=== PATIENT | female | born 1940 | race Caucasian/White ===

== ENCOUNTER → 2022-01-08 | Outpatient (CLI) | payer MEDICARE, BC ==
[~2022-01-08] MED LIST: AMOX1TAB11 PO; FURO20TA3 PO
--- NOTE | 2022-01-08 14:57 | RAD ---
EXAMINATION: CT Chest Without IV contrast. INDICATION:81 years, Female, lung nodule. COMPARISON: None. TECHNIQUE: Spiral CT was obtained from the jugular notch through the posterior costophrenic recess. S agittal and coronal reformats were obtained. Exposure: One or more of the following individualized dose reduction techniques were utilized for thi s examination: 1. Automated exposure control 2. Adjustment of the mA and/or kV according to patient size 3. Use of iterative reconstruction technique. FINDINGS: LUNGS/PLEURA: Central airways are patent. Mild pulmonary emphysema. Multifocal mosaic attenuations in both lungs, likely reflecting air trapping. Dependent subsegmental atelectasis and/or scarring in bi basilar lungs, right middle lobe and lingula. Tree-in-bud nodularities in the posterior superior segm ent left lower lobe. Biapical pleural thickening. No focal consolidation, pleural effusion or pneumot horax. Irregular 6 mm nodular opacity in the right upper lobe (series 8 image 67). Scattered calcifi ed granulomas bilaterally. MEDIASTINUM: No pathologic mediastinal or hilar adenopathy. Multiple calcified mediastinal and left h ilar lymph nodes. The thoracic aorta and pulmonary arteries are normal in caliber. The heart is nciki l in size. No pericardial effusion. Moderate calcified coronary atherosclerosis. The visualized thyro id and the esophagus are unremarkable. AXILLA/SOFT TISSUE: No supraclavicular or axillary adenopathy. Regional soft tissues are within nicki l limits. UPPER ABDOMEN: Cholecystectomy. Subcentimeter hypodensity in the left hepatic lobe, too small to daniella acterize. Calcified granulomas in the spleen. BONES: No evidence of acute fractures or aggressive osseous lesions. Multilevel degenerative changes in the spine. IMPRESSION: 1. Irregular 6 mm nodular opacity in the right upper lobe. Fleischner Society guidelines for manageme nt of incidental pulmonary nodule (Radiology 2017): Single Soild nodule6-8 mm: LOW-RISK and HIGH-RISK patient: CT at 6-12 months, then consider CT at 18-24 months. 2.Tree-in-bud nodularities in the posterior superior segment of the left lower lobe, likely infectiou s or inflammatory bronchiolitis. 3. Mild pulmonary emphysema with multifocal areas of air trapping. 4. Moderate calcified coronary atherosclerosis. Electronically signed by: Sun Urbina MD (01/08/2022 2:55 PM) [facility]
== END ==
LOC: CT 10:10
PROVIDERS: ATTEND Internal Medicine Critical Care Medicine
DX: R91.8 Other nonspecific abnormal finding of lung field (principal); J43.9 Emphysema, unspecified; I25.10 Atherosclerotic heart disease of native coronary artery without angina pectoris; J92.9 Pleural plaque without asbestos; I89.8 Other specified noninfective disorders of lymphatic vessels and lymph nodes; D73.89 Other diseases of spleen; M47.819 Spondylosis without myelopathy or radiculopathy, site unspecified
CPT/HCPCS: 71250

== ENCOUNTER 2022-01-23 13:07 | Emergency (ER) | payer MEDICARE, BC ==
[~2022-01-23] VITALS: Ht 170.2 cm; Wt 58.3 kg
--- NOTE | 2022-01-23 14:17 | ED.ADGEN ---
Past Medical History Past Surgical History: Cholecystectomy Smoking Status: Never Smoker Alcohol Use: None General Adult EDM: Chief Complaint: MULTIPLE COMPLAINTS HPI: HPI: Patient is a 81 year old female coming in for 2 months of "not feeling right" patient has multiple complaints including muscle pain and weakness, lower extremity edema, fatigue. Patient states she is having pain all over and is been taking naproxen. Denies any medical history. Denies any history of prescribed medications. Patient has seen her primary care doctor already and has follow appointments with pulmonology and cardiology. Review of Systems: Review of Systems: All other systems within normal limits except for as noted in the HPI Allergies: Allergies: Allergies Coded Allergies Type Severity Reaction Last Updated Verified iodine Allergy Intermediate 01/23/22 Yes Physical Exam: PE: Constitutional: Well developed, well nourished, no acute distress, non-toxic appearance. [] HENT: Normocephalic, atraumatic, bilateral external ears normal, nose normal. [] Eyes: PERRLA, conjunctiva normal, no discharge. [] Neck: No rigidity, supple, no stridor. [] Cardiovascular: Regular rate and rhythm, brisk cap refill [] Lungs & Thorax: Non labored symmetric respirations, no tachypnea or respiratory distress [] Abdomen: Soft, nondistended. Skin: Warm, dry, no erythema, no rash. [] Back: Unremarkable Extremities: No deformities, range of motion grossly intact, bilateral 3+ pitting lower extremity edema [] Neurologic: Alert and oriented X 3, no focal deficits noted. [] Psychologic: Affect normal, judgement normal, mood normal. [] Current Patient Data: Labs: Laboratory Tests Test 01/23/22 13:40 01/23/22 15:30 White Blood Count 16.4 x10^3/uL (4.0-11.0) H Red Blood Count 4.78 x10^6/uL (3.50-5.40) Hemoglobin 13.9 g/dL (12.0-15.5) Hematocrit 42.1 % (36.0-47.0) Mean Corpuscular Volume 88 fL (79-100) Mean Corpuscular Hemoglobin 29 pg (25-35) Mean Corpuscular Hemoglobin Concent 33 g/dL (31-37) Red Cell Distribution Width 14.0 % (11.5-14.5) Platelet Count 482 x10^3/uL (140-400) H Neutrophils (%) (Auto) 84 % (31-73) H Lymphocytes (%) (Auto) 6 % (24-48) L Monocytes (%) (Auto) 9 % (0-9) Eosinophils (%) (Auto) 1 % (0-3) Basophils (%) (Auto) 0 % (0-3) Neutrophils # (Auto) 13.8 x10^3/uL (1.8-7.7) H Lymphocytes # (Auto) 1.0 x10^3/uL (1.0-4.8) Monocytes # (Auto) 1.4 x10^3/uL (0.0-1.1) H Eosinophils # (Auto) 0.2 x10^3/uL (0.0-0.7) Basophils # (Auto) 0.1 x10^3/uL (0.0-0.2) Segmented Neutrophils % 75 % (35-66) H Band Neutrophils % 4 % (0-9) Lymphocytes % 8 % (24-48) L Monocytes % 11 % (0-10) H Eosinophils % 1 % (0-5) Myelocytes % 1 % (0-0) H Platelet Estimate Increased (ADEQUATE) Sodium Level 134 mmol/L (136-145) L Potassium Level 3.5 mmol/L (3.5-5.1) Chloride Level 97 mmol/L (98-107) L Carbon Dioxide Level 29 mmol/L (21-32) Anion Gap 8 (6-14) Blood Urea Nitrogen 19 mg/dL (7-20) Creatinine 0.9 mg/dL (0.6-1.0) Estimated GFR (Cockcroft-Gault) 60.4 BUN/Creatinine Ratio 21 (6-20) H Glucose Level 94 mg/dL (70-99) Calcium Level 8.6 mg/dL (8.5-10.1) Phosphorus Level 3.9 mg/dL (2.6-4.7) Magnesium Level 1.8 mg/dL (1.8-2.4) Total Bilirubin 0.6 mg/dL (0.2-1.0) Aspartate Amino Transferase (AST) 111 U/L (15-37) H Alanine Aminotransferase (ALT) 72 U/L (14-59) H Alkaline Phosphatase 104 U/L (46-116) Creatine Kinase 1058 U/L (26-192) H Myoglobin 1147 ng/mL (9-82) H Troponin I High Sensitivity 42 ng/L (4-50) EX-Thw-S-Type Natriuretic Peptide 1518 pg/mL (0-449) H Total Protein 6.5 g/dL (6.4-8.2) Albumin 2.0 g/dL (3.4-5.0) L Albumin/Globulin Ratio 0.4 (1.0-1.7) L Thyroid Stimulating Hormone (TSH) 6.562 uIU/mL (0.358-3.74) H Urine Collection Type Unknown Urine Color (Auto) Light yellow Urine Turbidity Clear Urine pH (Auto) 5.0 (<5.0-8.0) Urine Specific [place] 1.010 (1.000-1.030) Urine Protein (Auto) Negative mg/dL (Negative) Urine Glucose (Auto)(UA) Negative mg/dL (Negative) Urine Ketones (Auto) Negative mg/dL (Negative) Urine Blood (Auto) Small (Negative) Urine Nitrite Negative (Negative) Urine Bilirubin (Auto) Negative (Negative) Urine Urobilinogen (Auto) Normal mg/dL (Normal) Urine Leukocyte Esterase (Auto) Negative (Negative) Urine RBC 0 /HPF (0-2) Urine WBC 5-10 /HPF (0-4) Urine Squamous Epithelial Cells Few /LPF Urine Transitional Epithelial Cells Occ /LPF Urine Renal Epithelial Cells Occ /LPF Urine Bacteria 0 /HPF (0-FEW) Urine Hyaline Casts Many /HPF Urine Mucus Marked /LPF Laboratory Tests 01/23/22 13:40 Laboratory Tests 01/23/22 13:40 Vital Signs: Vital Signs Date Time Temp Pulse Resp B/P (MAP) Pulse Ox O2 Delivery O2 Flow Rate FiO2 01/23/22 16:06 73 18 123/69 (87) 98 01/23/22 13:11 97.3 Room Air 97.3 EKG: EKG: Sinus rhythm, heart rate 83 bpm, normal axis. No STEMI [] Heart Score: C/O Chest Pain: No HEART Score for Chest Pain: HEART Score for Chest Pain Response (Comments) Value History Slighlty/Non-Suspicious 0 ECG Normal 0 Age > 65 2 Risk Factors 1 or 2 Risk Factors 1 Troponin < Normal Limit 0 Total 3 Risk Factors: Risk Factors: DM, Current or recent (<one month) smoker, HTN, HLP, family history of CAD, obesity. Risk Scores: Score 0 - 3: 2.5% MACE over next 6 weeks - Discharge Home Score 4 - 6: 20.3% MACE over next 6 weeks - Admit for Clinical Observation Score 7 - 10: 72.7% MACE over next 6 weeks - Early Invasive Strategies Radiology/Procedures: Radiology/Procedures: [place] [address] IMAGING REPORT Signed PATIENT: MUNA MCCAIN ACCOUNT: [id number] : 1940 LOCATION: ER AGE: 81 SEX: F EXAM STATUS: REG ER ORD. PHYSICIAN: NABILA FAIRCHILD MD REASON: chf PROCEDURE: CHEST PA & LATERAL EXAMINATION: XR CHEST 2V CLINICAL HISTORY: CHF. EXAM DATE/TIME: 01/23/2022 3:15 PM COMPARISON: CT chest 01/08/2022 FINDINGS: Lines, Tubes, and Devices: None. Cardiomediastinal Silhouette: Borderline cardiomegaly. Aortic atherosclerotic calcification. Lungs and Pleura: Mild bibasilar subsegmental atelectasis and/or scarring with blunting of the posterior costophrenic sulci, similar to prior study. No evidence of focal airspace consolidation or definite pleural effusion. Bones and Soft Tissues: Degenerative changes in the thoracic spine. IMPRESSION: No evidence of acute cardiopulmonary abnormality. Electronically signed by: Gerson Flowers DO (01/23/2022 3:30 PM) [facility] DICTATED and SIGNED BY: GERSON FLOWERS DO DATE: 01/23/22 1528 [] [address] [address] IMAGING REPORT Signed PATIENT: MUNA MCCAIN ACCOUNT: [id number] : 1940 LOCATION: ER AGE: 81 SEX: F EXAM STATUS: REG ER ORD. PHYSICIAN: NABILA FAIRCHILD MD REASON: swelling PROCEDURE: VENOUS LOWER EXT BILATERAL EXAMINATION: US BILATERAL LOWEREXTREMITY VENOUS DOPPLER (LOWER EXTREMITY VENOUS ULTRASOUND) CLINICAL HISTORY: Lower extremity edema. TECHNIQUE: Sonographic grayscale images obtained of the bilateral lower extremity deep venous systems with color flow Doppler, compression, and augmentation techniques as indicated. Images obtained and stored in a permanent archive. COMPARISON: None FINDINGS: RIGHT: No evidence of absent flow or incompressibility within the common femoral vein, femoral vein, or popliteal vein. Visualized calf veins appear patent on limited evaluation. LEFT: No evidence of absent flow or incompressibility within the common femoral vein, femoral vein, or popliteal vein. Visualized calf veins appear patent on limited evaluation. IMPRESSION: No evidence of bilateral lower extremity DVT. Electronically signed by: Gerson Flowers DO (01/23/2022 3:09 PM) [facility] DICTATED and SIGNED BY: GERSON FLOWERS DO DATE: 01/23/22 1506 Course & Med Decision Making: Course & Med Decision Making Pertinent Labs and Imaging studies reviewed. (See chart for details) Patient has borderline elevation in BNP for age, concerning for developing heart failure. Patient also has a white count. On review of patient's CT that was done 3 weeks ago she had a tree-in-bud appearance on the left lung. We will try a antibiotics to see if that is the cause of her white count. Discussed follow-up with cardiology, has an appointment in 5 days, to review whether the diuretics are working. Do follow-up with her primary care for further review of possible inflammatory markers and systemic arthritis causing her whole body pain [] Dragon Disclaimer: Cayla Disclaimer: This electronic medical record was generated, in whole or in part, using a voice recognition dictation system. Departure Departure Impression: Primary Impression: Lower extremity edema Disposition: HOME / SELF CARE / HOMELESS Condition: STABLE Referrals: CONNIE WILSON MD (PCP) Patient Instructions: Peripheral Edema Additional Instructions: Take antibiotics as prescribed for possible pneumonia. Take the furosemide in the morning and follow-up with cardiology to evaluate dosing and effectiveness. Follow-up cardiology discussed possible echocardiogram to assess for heart failure. Scripts Furosemide (FUROSEMIDE) 20 Mg Tablet 1 TAB PO DAILY for diuretic for 7 Days, #7 TAB 1 Refill Prov: NABILA FAIRCHILD MD 01/23/22 Amoxicillin/Potassium Clav (AMOX TR-K CLV 875-125 MG TAB) 1 Each Tablet 1 TAB PO BID for antibiotic for 5 Days, #10 TAB Prov: NABILA FAIRCHILD MD 01/23/22 NABILA FAIRCHILD MD Jan 23, 2022 14:17
[2022-01-23 14:24] LABS: BASO # 0.1 x10^3/uL (0.0-0.2); BASO % 0 % (0-3); EOS # 0.2 x10^3/uL (0.0-0.7); EOS % 1 % (0-3); HEMATOCRIT 42.1 % (36.0-47.0); HEMOGLOBIN 13.9 g/dL (12.0-15.5); LYMPH % 6 % (24-48); MEAN CORPUSCULAR HEMOGLOBIN 29 pg (25-35); MEAN CORPUSCULAR HGB CONC 33 g/dL (31-37); MEAN CORPUSCULAR VOLUME 88 fL (79-100); MONO # 1.4 x10^3/uL (0.0-1.1); MONO % 9 % (0-9); NEUT # 13.8 x10^3/uL (1.8-7.7); NEUT % 84 % (31-73); PLATELET COUNT 482 x10^3/uL (140-400); RED BLOOD COUNT 4.78 x10^6/uL (3.50-5.40); WHITE BLOOD COUNT 16.4 x10^3/uL (4.0-11.0)
[2022-01-23 14:43] LABS: CALCIUM 8.6 mg/dL (8.5-10.1); CREATININE 0.9 mg/dL (0.6-1.0); GFR 60.4; POTASSIUM 3.5 mmol/L (3.5-5.1)
[2022-01-23 15:09] LABS: ALBUMIN/GLOBULIN RATIO 0.4 (1.0-1.7); MAGNESIUM 1.8 mg/dL (1.8-2.4); PHOSPHORUS 3.9 mg/dL (2.6-4.7); TOTAL BILIRUBIN 0.6 mg/dL (0.2-1.0); TOTAL PROTEIN 6.5 g/dL (6.4-8.2)
--- NOTE | 2022-01-23 15:11 | RAD ---
EXAMINATION: US BILATERAL LOWEREXTREMITY VENOUS DOPPLER (LOWER EXTREMITY VENOUS ULTRASOUND) CLINICAL HISTORY: Lower extremity edema. TECHNIQUE: Sonographic grayscale images obtained of the bilateral lower extremity deep venous systems with color flow Doppler, compression, and augmentation techniques as indicated. Images obtained and stored in a permanent archive. COMPARISON: None FINDINGS: RIGHT: No evidence of absent flow or incompressibility within the common femoral vein, femoral vein, or popl iteal vein. Visualized calf veins appear patent on limited evaluation. LEFT: No evidence of absent flow or incompressibility within the common femoral vein, femoral vein, or popl iteal vein. Visualized calf veins appear patent on limited evaluation. IMPRESSION: No evidence of bilateral lower extremity DVT. Electronically signed by: Gerson Peña DO (01/23/2022 3:09 PM) [facility]
--- NOTE | 2022-01-23 15:33 | RAD ---
EXAMINATION: XR CHEST 2V CLINICAL HISTORY: CHF. EXAM DATE/TIME: 01/23/2022 3:15 PM COMPARISON: CT chest 01/08/2022 FINDINGS: Lines, Tubes, and Devices: None. Cardiomediastinal Silhouette: Borderline cardiomegaly. Aortic atherosclerotic calcification. Lungs and Pleura: Mild bibasilar subsegmental atelectasis and/or scarring with blunting of the dog or animal sitter ior costophrenic sulci, similar to prior study. No evidence of focal airspace consolidation or defini te pleural effusion. Bones and Soft Tissues: Degenerative changes in the thoracic spine. IMPRESSION: No evidence of acute cardiopulmonary abnormality. Electronically signed by: Gerson Peña DO (01/23/2022 3:30 PM) ERINN
[2022-01-23 15:55] LABS: HYALINE CASTS, URINE MANY /HPF
[2022-01-23 15:56] LABS: BACTERIA,URINE 0 /HPF (0-FEW); RBC,URINE 0 /HPF (0-2)
[2022-01-23 16:10] LABS: % BANDS 4 % (0-9); % EOS 1 % (0-5); % LYMPHS 8 % (24-48); % MONOS 11 % (0-10); % MYELOS 1 % (0-0); % SEGS 75 % (35-66)
[2022-01-23 16:11] LABS: PLT ESTIMATE INCREASED (ADEQUATE)
[2022-01-23] MEDS ORDERED: FURO20TA3 PO (16:35)
[2022-01-23] MEDS ORDERED: AMOX1TAB11 PO (16:35)
[2022-01-23 16:41] VITALS: BP 123/69
--- NOTE | 2022-01-24 00:29 | EKG ---
[facility] [address] [place] [address] Test Date: 2022-01-23 Test Time: 14:27:34 Pat Name: MUNA MCCAIN Department: Room: Gender: F [employer]: : 1940 Requested By: NABILA FAIRCHILD Order Number: [id number] Reading MD: Jay You Measurements Intervals [place] Rate: 83 P: 47 AR: 124 QRS: 34 QRSD: 78 T: 72 QT: 368 QTc: 438 Interpretive Statements SINUS RHYTHM ATRIAL PREMATURE COMPLEX(ES) Electronically Signed On 01-27-2022 17:34:33 CDT by Jay You
== END 2022-01-23 16:48 | disposition home or self-care (01) ==
LOC: ER 13:07
DX: M79.604 Pain in right leg (principal); M79.605 Pain in left leg; R60.0 Localized edema; Z90.49 Acquired absence of other specified parts of digestive tract; Z88.8 Allergy status to other drugs, medicaments and biological substances
CPT/HCPCS: 36415; 71046; 80053; 81001; 82550; 83735; 83874; 83880; 84100; 84443; 84484; 85007; 85025; 87086; 93005; 93970; 99285-25

== ENCOUNTER 2022-02-05 17:39 | Inpatient (IN) | payer MEDICARE, BC ==
[~2022-02-05] VITALS: Ht 170.2 cm; Wt 59.0 kg
[2022-02-05] MEDS ORDERED: IV NORMAL SALINE 1000ML BAG 1,000 ML IV ONE ×2 (18:45→19:30)
--- NOTE | 2022-02-05 18:53 | PHYS DOC ---
Past Medical History Past Medical History: COPD (DAMIR LYNN APRN) Past Surgical History: Cholecystectomy (DAMIR LYNN APRN) Smoking Status: Never Smoker Alcohol Use: None (DAMIR LYNN APRN) General Adult EDM: Chief Complaint: WEAKNESS/GENERALIZED HPI: HPI: Patient is a 81-year-old female who presents today with generalized weakness and pain all over. We received a call from the patient's primary care physician Dr. Tangela Pena at [facility] and she sent the patient in because the patient's had 8 weeks worth of generalized weakness, weight loss, increased white count, and failure to thrive. The who is at the bedside states that they over the last 8 weeks have seen their primary care physician twice, they have been to a insurance claims representative Dr. Belle, they have been to a registered clinical dietitian Dr. Fried, and no one can figure out why the patient is having weight loss and generalized weakness. Patient has also had bilateral leg swelling for the last 8 weeks as well, she denies chest pain, shortness of breath, or fever and chills. Has been states that they had labs drawn here at [facility] that showed a white count of 16,000, the had labs repeated at Dr. Pena's office which showed a white count of 20,000 they are unsure of why the patient's white count is elevated. Patient also states that she had a son that from a neurological condition that is in some terms hereditary, he at the age of 48, patient has not had any evaluation by a neurologist at this time. is very insistent that patient be admitted to the hospital for further evaluation and management. (DAMIR LYNN APRN) Review of Systems: Review of Systems: Constitutional: Denies fever or chills. [] Eyes: Denies change in visual acuity. [] HENT: Denies nasal congestion or sore throat. [] Respiratory: Denies cough or shortness of breath. [] Cardiovascular: Denies chest pain or edema. [] GI: Weight loss, nausea denies abdominal pain, vomiting, bloody stools or diarrhea. [] : Denies dysuria. [] Musculoskeletal: Generalized weakness and pain all over Integument: Denies rash. [] Neurologic: Denies headache, focal weakness or sensory changes. [] Endocrine: Denies polyuria or polydipsia. [] Lymphatic: Denies swollen glands. [] Psychiatric: Denies depression or anxiety. [] (DAMIR LYNN APRN) Heart Score: C/O Chest Pain: No Risk Factors: Risk Factors: DM, Current or recent (<one month) smoker, HTN, HLP, family history of CAD, obesity. Risk Scores: Score 0 - 3: 2.5% MACE over next 6 weeks - Discharge Home Score 4 - 6: 20.3% MACE over next 6 weeks - Admit for Clinical Observation Score 7 - 10: 72.7% MACE over next 6 weeks - Early Invasive Strategies (DAMIR LYNN APRN) Current Medications: Current Medications Medications (Trade) Dose Ordered Sig/Oren Start Time Stop Time Status Last Admin Dose Admin Sodium Chloride 1,000 ml @ 999 mls/hr 1X ONCE 02/05/22 18:45 02/05/22 19:45 UNV (DAMIR LYNN APRN) Allergies: Allergies: Allergies Coded Allergies Type Severity Reaction Last Updated Verified iodine Allergy Intermediate 01/23/22 Yes (DAMIR LYNN APRN) Physical Exam: PE: Constitutional: Well developed, well nourished, no acute distress, non-toxic appearance. [] HENT: Normocephalic, atraumatic, bilateral external ears normal, oropharynx moist, no oral exudates, nose normal. [] Eyes: PERRLA, EOMI, conjunctiva normal, no discharge. [] Neck: Normal range of motion, no tenderness, supple, no stridor. [] Cardiovascular:Heart rate regular rhythm, no murmur [] Lungs & Thorax: Bilateral breath sounds clear to auscultation [] Abdomen: Bowel sounds normal, soft, no tenderness, no masses, no pulsatile masses. [] Skin: Warm, dry, no erythema, no rash. [] Back: No tenderness, no CVA tenderness. [] Extremities: No tenderness, no cyanosis, no clubbing, ROM intact, no edema. [] Neurologic: Alert and oriented X 3, normal motor function, normal sensory function, no focal deficits noted. [] Psychologic: Affect normal, judgement normal, mood normal. [] (DAMIR LYNN APRN) Current Patient Data: Labs: Laboratory Tests Test 02/05/22 18:27 02/05/22 18:52 Urine Collection Type Unknown Urine Color (Auto) Yellow Urine Turbidity Hazy Urine pH (Auto) 5.5 Urine Specific [place] 1.021 Urine Protein (Auto) 50 mg/dL Urine Glucose (Auto)(UA) Negative mg/dL Urine Ketones (Auto) 20 mg/dL Urine Blood (Auto) Moderate Urine Nitrite Negative Urine Bilirubin (Auto) Negative Urine Urobilinogen (Auto) 4 mg/dL Urine Leukocyte Esterase (Auto) Large Urine RBC 3-5 /HPF Urine WBC 11-20 /HPF Urine Squamous Epithelial Cells Many /LPF Urine Transitional Epithelial Cells Few /LPF Urine Renal Epithelial Cells Few /LPF Urine Bacteria Few /HPF Urine Hyaline Casts Moderate /HPF Urine Granular Casts Few /HPF Urine Mucus Marked /LPF White Blood Count 18.4 x10^3/uL Red Blood Count 4.64 x10^6/uL Hemoglobin 13.2 g/dL Hematocrit 39.7 % Mean Corpuscular Volume 86 fL Mean Corpuscular Hemoglobin 29 pg Mean Corpuscular Hemoglobin Concent 33 g/dL Red Cell Distribution Width 15.3 % Platelet Count 320 x10^3/uL Neutrophils (%) (Auto) 87 % Lymphocytes (%) (Auto) 4 % Monocytes (%) (Auto) 8 % Eosinophils (%) (Auto) 0 % Basophils (%) (Auto) 0 % Neutrophils # (Auto) 16.0 x10^3/uL Lymphocytes # (Auto) 0.7 x10^3/uL Monocytes # (Auto) 1.6 x10^3/uL Eosinophils # (Auto) 0.1 x10^3/uL Basophils # (Auto) 0.1 x10^3/uL Segmented Neutrophils % 82 % Band Neutrophils % 3 % Lymphocytes % 7 % Monocytes % 6 % Myelocytes % 2 % Platelet Estimate Adequate Erythrocyte Sedimentation Rate 40 Sodium Level 139 mmol/L Potassium Level 3.5 mmol/L Chloride Level 97 mmol/L Carbon Dioxide Level 28 mmol/L Anion Gap 14 Blood Urea Nitrogen 33 mg/dL Creatinine 1.2 mg/dL Estimated GFR (Cockcroft-Gault) 43.3 BUN/Creatinine Ratio 28 Glucose Level 108 mg/dL Lactic Acid Level 3.6 mmol/L Calcium Level 8.6 mg/dL Total Bilirubin 1.8 mg/dL Aspartate Amino Transf (AST/SGOT) 44 U/L Alanine Aminotransferase (ALT/SGPT) 36 U/L Alkaline Phosphatase 106 U/L Troponin I High Sensitivity 21 ng/L C-Reactive Protein, Quantitative 249.4 mg/L VM-[id number]-Type Natriuretic Peptide 2212 pg/mL Total Protein 6.7 g/dL Albumin 1.9 g/dL Albumin/Globulin Ratio 0.4 Current Medications Medications (Trade) Dose Ordered Sig/Oren Route PRN Reason Start Time Stop Time Status Last Admin Dose Admin Sodium Chloride 1,000 ml @ 999 mls/hr 1X ONCE IV 02/05/22 18:45 02/05/22 19:45 DC 02/05/22 19:02 Ceftriaxone Sodium (Rocephin) 1 gm 1X ONCE IVP 02/05/22 20:00 02/05/22 20:01 DC 02/05/22 19:50 Sodium Chloride 1,000 ml @ 999 mls/hr 1X ONCE IV 02/05/22 19:30 02/05/22 20:30 02/05/22 19:49 Vital Signs: Vital Signs Date Time Temp Pulse Resp B/P (MAP) Pulse Ox O2 Delivery O2 Flow Rate FiO2 02/05/22 18:23 98.4 87 20 161/83 (109) 100 Room Air 98.4 Vital Signs Date Time Temp Pulse Resp B/P (MAP) Pulse Ox O2 Delivery O2 Flow Rate FiO2 02/05/22 18:23 98.4 87 20 161/83 (109) 100 Room Air 98.4 (DAMIR LYNN ENGINE TESTER) EKG: EKG: EKG done at [address] Lua at 1844 shows sinus rhythm with PACs at a rate of 91 with a LA interval of 110 ms with a QTC of 427 ms no STEMI [] (DAMIR LYNN ENGINE TESTER) Radiology/Procedures: Radiology/Procedures: []REASON: weight loss and weakness, fall PROCEDURE: CT CHEST ABDOMEN PELVIS WO Exam: CT of chest, abdomen and pelvis without contrast INDICATION: Weight loss, weakness TECHNIQUE: Sequential axial images through the chest, abdomen and pelvis obtained without IV contrast. Sagittal and coronal reformatted images were recon structed from the axial data and reviewed. Exposure: One or more of the following in the visualized dose reduction techniques were utilized for this examination: 1. Automated exposure control 2. Adjustment of the MA and/or KV according to patient size 3. Use of iterative of reconstructive technique Comparisons: Chest x-ray same day FINDINGS: Visualized portions of the thyroid are unremarkable. No enlarged mediastinal lymph nodes are identified. Heart size is normal. No pericardial effusion. Mild coronary artery calcification. Ectatic dilatation of ascending aorta measuring up to 4.1 cm in diameter. Pulmonary artery is not enlarged. Airways are patent. No consolidation or pneumothorax. Mild centrilobular emphysematous change noted the upper lungs. No suspicious lung nodules are identified. No pleural effusion or thickening. Evaluation of solid organs limited secondary to noncontrast technique. Liver, spleen, pancreas, and adrenals are unremarkable. Gallbladder is absent. No perinephric inflammation or hydronephrosis. No renal or ureteral calculi are identified. Bladder is partially distended and appears thin-walled. Uterus not enlarged. No abnormal adnexal mass. Moderate amount of stool is noted in the colon. Appendix is nonidentified. No free intra-abdominal air. Small amount of free fluid in the pelvis. No obstruction. Abdominal aorta has normal course and caliber. No enlarged intra-abdominal lymph nodes are identified. No suspicious osseous lesions or acute fractures. IMPRESSION: 1. Small amount of free fluid in the pelvis. This is nonspecific, may relate to underlying infectious or inflammatory process. 2. Ectatic dilatation of ascending aorta measuring up to 4.1 cm in diameter. Electronically signed by: Meme Meija MD (02/05/2022 7:36 PM) [facility] (DAMIR LYNN APRN) Course & Med Decision Making: Course & Med Decision Making Pertinent Labs and Imaging studies reviewed. (See chart for details) 1950 reviewed laboratory and radiological results with patient and and did inform him that she still has a urinary tract infection, and that her white count is still elevated I did tell him that we will admit to the hospitalist which is Dr. Burk for further evaluation and management of her urinary tract infection and elevated white count, they are agreeable with the plan of care and admission. [address] Burk about this patient and he is agreeable to admitting the patient to the hospital. (DAMIR LYNN APRN) Cayla Disclaimer: Dragrene Disclaimer: This electronic medical record was generated, in whole or in part, using a voice recognition dictation system. (DAMIR LYNN APRN) Date and Time of Reassessment Date: February 05, 2022 Time: 20:11 (DAMIR LYNN APRN) Fluid Challenge Is the fluid challenge complet: Yes IBW Target Volume Used: Yes BMI > 30: Yes Blood Culture TIme: 18:52 Time Antibiotics Given: 19:50 (DAMIR LYNN APRN) Vital Signs Vital Signs: Vital Signs Date Time Temp Pulse Resp B/P (MAP) Pulse Ox O2 Delivery O2 Flow Rate FiO2 02/05/22 18:23 98.4 87 20 161/83 (109) 100 Room Air 98.4 Temperature Source: Oral (DAMIR LYNN APRN) Temperature Source: Oral (AROLDO LUA DO) Respirations Respiratory Pattern: Normal (DAMIR LYNN APRN) Cardiovascular Pulse Rhythm: Regular Heart: Nml rate, reg. rhythm (DAMIR LYNN APRN) Lung Sounds Breath Sounds: Clear (DAMIR LYNN APRN) Capillary Refil Capillary Refill: Rt Hand < 3 seconds (DAMIR LYNN APRN) Peripheral Pulse Pulse Location: Monitor Pulse Strength: Normal (2+) Pulse Assessment Method: Monitor (DAMIR LYNN APRN) Pulse Assessment Method: Monitor (AROLDO LUA R ) Integumentary Skin: Warm Skin Moisture: Dry Skin Turgor: Decreased Skin Color: warm, dry Fingernail Color: WNL (DAMIR LYNN APRN) Skin Moisture: Dry (CHANELLAROLDO R DO) Departure Departure Impression: Primary Impression: Urinary tract infection Qualified Codes: N30.01 - Acute cystitis with hematuria Additional Impressions: Weight loss Weakness generalized Sepsis Qualified Codes: A41.9 - Sepsis, unspecified organism Disposition: ADMITTED INPATIENT Admitting Physician: ANDREW (DAMIR LYNN APRN) Condition: STABLE Referrals: CONNIE PENA MD (PCP) Attending Signature Attending Signature I have reviewed the PA/RFP WRITER's note and plan of care. I was available for consultation as needed during the patient's visit in the emergency department. I agree with the clinical impression, plan, and disposition. (AROLDO LUA DO) DAMIR LYNN APRN February 05, 2022 18:53 AROLDO LUA DO February 05, 2022 23:58
[2022-02-05 19:03] LABS: BASO # 0.1 x10^3/uL (0.0-0.2); BASO % 0 % (0-3); EOS # 0.1 x10^3/uL (0.0-0.7); EOS % 0 % (0-3); HEMATOCRIT 39.7 % (36.0-47.0); HEMOGLOBIN 13.2 g/dL (12.0-15.5); LYMPH # 0.7 x10^3/uL (1.0-4.8); LYMPH % 4 % (24-48); MEAN CORPUSCULAR HEMOGLOBIN 29 pg (25-35); MEAN CORPUSCULAR HGB CONC 33 g/dL (31-37); MEAN CORPUSCULAR VOLUME 86 fL (79-100); MONO # 1.6 x10^3/uL (0.0-1.1); MONO % 8 % (0-9); NEUT % 87 % (31-73); PLATELET COUNT 320 x10^3/uL (140-400); RED BLOOD COUNT 4.64 x10^6/uL (3.50-5.40); RED CELL DISTRIBUTION WIDTH 15.3 % (11.5-14.5); WHITE BLOOD COUNT 18.4 x10^3/uL (4.0-11.0)
[2022-02-05 19:04] LABS: HYALINE CASTS, URINE MODERATE /HPF
[2022-02-05 19:05] LABS: BACTERIA,URINE FEW /HPF (0-FEW); GRANULAR CASTS,URINE FEW /HPF
[2022-02-05 19:16] LABS: CALCIUM 8.6 mg/dL (8.5-10.1); CREATININE 1.2 mg/dL (0.6-1.0); GFR 43.3; POTASSIUM 3.5 mmol/L (3.5-5.1)
[2022-02-05 19:22] LABS: ALBUMIN 1.9 g/dL (3.4-5.0); ALBUMIN/GLOBULIN RATIO 0.4 (1.0-1.7); C-REACTIVE PROTEIN 249.4 mg/L (0-3.3); TOTAL BILIRUBIN 1.8 mg/dL (0.2-1.0); TOTAL PROTEIN 6.7 g/dL (6.4-8.2)
[2022-02-05 19:39] LABS: % BANDS 3 % (0-9); % LYMPHS 7 % (24-48); % MONOS 6 % (0-10); % MYELOS 2 % (0-0); % SEGS 82 % (35-66); PLT ESTIMATE ADEQUATE (ADEQUATE)
--- NOTE | 2022-02-05 19:39 | RAD ---
Single view chest dated 02/05/2022 7:35 PM: COMPARISON: 01/23/2022 Clinical Indication: Swelling in legs. Findings: Single upright portable exam of the chest was performed. Heart and mediastinal contours are stable. L ungs are hyperinflated but otherwise clear. No consolidation or pleural effusion. No pneumothorax. IMPRESSION: 1. No acute radiographic abnormality. 2. Findings suggestive of COPD. Electronically signed by: Lauri Meneses MD (02/05/2022 7:36 PM) BERRY
--- NOTE | 2022-02-05 19:39 | RAD ---
Exam: CT of chest, abdomen and pelvis without contrast INDICATION: Weight loss, weakness TECHNIQUE: Sequential axial images through the chest, abdomen and pelvis obtained without IV contrast . Sagittal and coronal reformatted images were reconstructed from the axial data and reviewed. Exposure: One or more of the following in the visualized dose reduction techniques were utilized for this examination: 1. Automated exposure control 2. Adjustment of the MA and/or KV according to patient size 3. Use of iterative of reconstructive technique Comparisons: Chest x-ray same day FINDINGS: Visualized portions of the thyroid are unremarkable. No enlarged mediastinal lymph nodes are identifi ed. Heart size is normal. No pericardial effusion. Mild coronary artery calcification. Ectatic dilatation of ascending aorta measuring up to 4.1 cm in diameter. Pulmonary artery is not enlarged. Airways are patent. No consolidation or pneumothorax. Mild centrilobular emphysematous change noted t he upper lungs. No suspicious lung nodules are identified. No pleural effusion or thickening. Evaluation of solid organs limited secondary to noncontrast technique. Liver, spleen, pancreas, and adrenals are unremarkable. Gallbladder is absent. No perinephric inflammation or hydronephrosis. No renal or ureteral calculi are identified. Bladder is partially distended and appears thin-walled. Uterus not enlarged. No abnormal adnexal mass . Moderate amount of stool is noted in the colon. Appendix is nonidentified. No free intra-abdominal ai r. Small amount of free fluid in the pelvis. No obstruction. Abdominal aorta has normal course and caliber. No enlarged intra-abdominal lymph nodes are identified. No suspicious osseous lesions or acute fractures. IMPRESSION: 1. Small amount of free fluid in the pelvis. This is nonspecific, may relate to underlying infectiou s or inflammatory process. 2. Ectatic dilatation of ascending aorta measuring up to 4.1 cm in diameter. Electronically signed by: Meme Mejia MD (02/05/2022 7:36 PM) [facility]
[2022-02-05] MEDS ORDERED: cefTRIAXone IV Push 1 GM VIAL. IVP ONE (20:00)
--- NOTE | 2022-02-05 21:57 | PDOC1 ---
History and Physical Date of Admission Date of Admission DATE: 02/05/22 TIME: 21:43 Identification/Chief Complaint Chief Complaint Weakness, failure to thrive Source Source: Chart review, Patient History of Present Illness History of Present Illness Patient is a 81 yo female who presents to the ED for evaluation of weakness and loss of that has been present over the past 8 weeks. Patient and can agree that her weakness began around the time their family dog . is concerned that patient may be dealing with some depression is this regard. She notes a 20-30 lb unintentional weight-loss over the past 8 wks, likely do to her poor oral intake. states she will drink about 2 oz of Ensure daily. She has also had profound weakness over this time as well, mostly in her lower extremities, to the point where she can hardly walk. They have a son who passed from muscular dystrophy. She was seen by a long distance billing operator and had an echocardiogram with reportedly normal results. Due to bilateral lower extremity edema, she was prescribed Lasix by her long distance billing operator, without significant improvement. She admits to some constipation recently, but denies dark stools or bloody stools. Labs on admission significant for WBC 18.4, BUN 33, Cr 1.2, pro-BNP 2,212, CRP 249.4, lactic acid 3.6. UA with large LE, urine protein 50, many squamous cells. She is unsure about dysuria, but admits to urinary frequency and urgency; she takes Lasix. CXR showed no acute radiographic abnormality, findings suggestive of COPD. CT chest/abd/pel showed small amount of free fluid in the pelvis, ectatic dilatation of ascending aorta measuring up to 4.1 cm in diameter. She received Rocephin and IV fluids in the ED. She has never had a colonoscopy. Will admit for further medical management. Past Medical History Pulmonary: COPD Past Surgical History Past Surgical History: Cholecystectomy Family History Family History Muscular dystrophy Social History Smoke: Quit ALCOHOL: none Drugs: None Current Problem List Problem List Problems Medical Problems: (1) Urinary tract infection Status: Acute (2) Weakness generalized Status: Acute (3) Weight loss Status: Acute Current Medications Current Medications Current Medications Sodium Chloride 1,000 ml @ 999 mls/hr 1X ONCE IV Last administered on 02/05/22at 19:02; Start 02/05/22 at 18:45; Stop 02/05/22 at 19:45; Status DC Ceftriaxone Sodium (Rocephin) 1 gm 1X ONCE IVP Last administered on 02/05/22at 19:50; Start 02/05/22 at 20:00; Stop 02/05/22 at 20:01; Status DC Sodium Chloride 1,000 ml @ 999 mls/hr 1X ONCE IV Last administered on 02/05/22at 19:49; Start 02/05/22 at 19:30; Stop 02/05/22 at 20:30; Status DC Active Scripts Active Furosemide 20 Mg Tablet 1 Tab PO DAILY 7 Days Amox Tr-K Clv 875-125 Mg Tab (Amoxicillin/Potassium Clav) 1 Each Tablet 1 Tab PO BID 5 Days Allergies Allergies: Coded Allergies: iodine (Verified Allergy, Intermediate, 01/23/22) ROS Review of System GENERAL: Generalized weakness, weight loss. No history of fevers. SKIN: No bruising, hair changes or rashes. EYES: No blurred, double or loss of vision. NOSE AND THROAT: No history of nosebleeds, hoarseness or sore throat. HEART: Denies chest pain, denies palpitations. LUNGS: Denies cough, hemoptysis, wheezing or shortness of breath. GASTROINTESTINAL: Lack of appetite, anorexia. Denies nausea, vomiting, abdominal pain. GENITOURINARY: Dysuria, frequency, urgency. Denies hematuria. NEUROLOGIC: Denies history of numbness, tingling, tremors. PSYCHIATRIC: Depression, anxiety. ENDOCRINE: No history of heat or cold intolerance, polyuria or polydipsia. EXTREMITIES: Musculoskeletal weakness and generalized musculoskeletal pain. Denies pain on walking or stiffness. Physical Exam Physical Exam General: Alert, Oriented X3, Cooperative, mild distress HEENT: Atraumatic, EOMI Lungs: Decreased breath sounds bilaterally Heart: RRR, no rubs Cardiovascular: S1, S2 Abdomen: Normal bowel sounds, Soft, No tenderness Extremities: 2+ bilateral leg edema Skin: No breakdown, No significant lesion Neuro: Bilateral lower extremity strength 1/5. Bilateral upper extremity strength 4/5. Normal speech, Sensation intact Psych/Mental Status: Depressed Vitals Vitals Vital Signs Date Time Temp Pulse Resp B/P (MAP) Pulse Ox O2 Delivery O2 Flow Rate FiO2 02/05/22 18:23 98.4 87 20 161/83 (109) 100 Room Air 98.4 Labs Labs Laboratory Tests Test 02/05/22 18:27 02/05/22 18:52 Urine Collection Type Unknown Urine Color (Auto) Yellow Urine Turbidity Hazy Urine pH (Auto) 5.5 (<5.0-8.0) Urine Specific [place] 1.021 (1.000-1.030) Urine Protein (Auto) 50 mg/dL (Negative) Urine Glucose (Auto)(UA) Negative mg/dL (Negative) Urine Ketones (Auto) 20 mg/dL (Negative) Urine Blood (Auto) Moderate (Negative) Urine Nitrite Negative (Negative) Urine Bilirubin (Auto) Negative (Negative) Urine Urobilinogen (Auto) 4 mg/dL (Normal) Urine Leukocyte Esterase (Auto) Large (Negative) Urine RBC 3-5 /HPF (0-2) Urine WBC 11-20 /HPF (0-4) Urine Squamous Epithelial Cells Many /LPF Urine Transitional Epithelial Cells Few /LPF Urine Renal Epithelial Cells Few /LPF Urine Bacteria Few /HPF (0-FEW) Urine Hyaline Casts Moderate /HPF Urine Granular Casts Few /HPF Urine Mucus Marked /LPF White Blood Count 18.4 x10^3/uL (4.0-11.0) Red Blood Count 4.64 x10^6/uL (3.50-5.40) Hemoglobin 13.2 g/dL (12.0-15.5) Hematocrit 39.7 % (36.0-47.0) Mean Corpuscular Volume 86 fL (79-100) Mean Corpuscular Hemoglobin 29 pg (25-35) Mean Corpuscular Hemoglobin Concent 33 g/dL (31-37) Red Cell Distribution Width 15.3 % (11.5-14.5) Platelet Count 320 x10^3/uL (140-400) Neutrophils (%) (Auto) 87 % (31-73) Lymphocytes (%) (Auto) 4 % (24-48) Monocytes (%) (Auto) 8 % (0-9) Eosinophils (%) (Auto) 0 % (0-3) Basophils (%) (Auto) 0 % (0-3) Neutrophils # (Auto) 16.0 x10^3/uL (1.8-7.7) Lymphocytes # (Auto) 0.7 x10^3/uL (1.0-4.8) Monocytes # (Auto) 1.6 x10^3/uL (0.0-1.1) Eosinophils # (Auto) 0.1 x10^3/uL (0.0-0.7) Basophils # (Auto) 0.1 x10^3/uL (0.0-0.2) Segmented Neutrophils % 82 % (35-66) Band Neutrophils % 3 % (0-9) Lymphocytes % 7 % (24-48) Monocytes % 6 % (0-10) Myelocytes % 2 % (0-0) Platelet Estimate Adequate (ADEQUATE) Erythrocyte Sedimentation Rate 40 (0-25) Sodium Level 139 mmol/L (136-145) Potassium Level 3.5 mmol/L (3.5-5.1) Chloride Level 97 mmol/L (98-107) Carbon Dioxide Level 28 mmol/L (21-32) Anion Gap 14 (6-14) Blood Urea Nitrogen 33 mg/dL (7-20) Creatinine 1.2 mg/dL (0.6-1.0) Estimated GFR (Cockcroft-Gault) 43.3 BUN/Creatinine Ratio 28 (6-20) Glucose Level 108 mg/dL (70-99) Lactic Acid Level 3.6 mmol/L (0.4-2.0) Calcium Level 8.6 mg/dL (8.5-10.1) Total Bilirubin 1.8 mg/dL (0.2-1.0) Aspartate Amino Transf (AST/SGOT) 44 U/L (15-37) Alanine Aminotransferase (ALT/SGPT) 36 U/L (14-59) Alkaline Phosphatase 106 U/L (46-116) Troponin I High Sensitivity 21 ng/L (4-50) C-Reactive Protein, Quantitative 249.4 mg/L (0-3.3) DQ-Iku-K-Type Natriuretic Peptide 2212 pg/mL (0-449) Total Protein 6.7 g/dL (6.4-8.2) Albumin 1.9 g/dL (3.4-5.0) Albumin/Globulin Ratio 0.4 (1.0-1.7) Laboratory Tests Test 02/05/22 18:27 02/05/22 18:52 Urine Collection Type Unknown Urine Color (Auto) Yellow Urine Turbidity Hazy Urine pH (Auto) 5.5 (<5.0-8.0) Urine Specific [place] 1.021 (1.000-1.030) Urine Protein (Auto) 50 mg/dL (Negative) Urine Glucose (Auto)(UA) Negative mg/dL (Negative) Urine Ketones (Auto) 20 mg/dL (Negative) Urine Blood (Auto) Moderate (Negative) Urine Nitrite Negative (Negative) Urine Bilirubin (Auto) Negative (Negative) Urine Urobilinogen (Auto) 4 mg/dL (Normal) Urine Leukocyte Esterase (Auto) Large (Negative) Urine RBC 3-5 /HPF (0-2) Urine WBC 11-20 /HPF (0-4) Urine Squamous Epithelial Cells Many /LPF Urine Transitional Epithelial Cells Few /LPF Urine Renal Epithelial Cells Few /LPF Urine Bacteria Few /HPF (0-FEW) Urine Hyaline Casts Moderate /HPF Urine Granular Casts Few /HPF Urine Mucus Marked /LPF White Blood Count 18.4 x10^3/uL (4.0-11.0) Red Blood Count 4.64 x10^6/uL (3.50-5.40) Hemoglobin 13.2 g/dL (12.0-15.5) Hematocrit 39.7 % (36.0-47.0) Mean Corpuscular Volume 86 fL (79-100) Mean Corpuscular Hemoglobin 29 pg (25-35) Mean Corpuscular Hemoglobin Concent 33 g/dL (31-37) Red Cell Distribution Width 15.3 % (11.5-14.5) Platelet Count 320 x10^3/uL (140-400) Neutrophils (%) (Auto) 87 % (31-73) Lymphocytes (%) (Auto) 4 % (24-48) Monocytes (%) (Auto) 8 % (0-9) Eosinophils (%) (Auto) 0 % (0-3) Basophils (%) (Auto) 0 % (0-3) Neutrophils # (Auto) 16.0 x10^3/uL (1.8-7.7) Lymphocytes # (Auto) 0.7 x10^3/uL (1.0-4.8) Monocytes # (Auto) 1.6 x10^3/uL (0.0-1.1) Eosinophils # (Auto) 0.1 x10^3/uL (0.0-0.7) Basophils # (Auto) 0.1 x10^3/uL (0.0-0.2) Segmented Neutrophils % 82 % (35-66) Band Neutrophils % 3 % (0-9) Lymphocytes % 7 % (24-48) Monocytes % 6 % (0-10) Myelocytes % 2 % (0-0) Platelet Estimate Adequate (ADEQUATE) Erythrocyte Sedimentation Rate 40 (0-25) Sodium Level 139 mmol/L (136-145) Potassium Level 3.5 mmol/L (3.5-5.1) Chloride Level 97 mmol/L (98-107) Carbon Dioxide Level 28 mmol/L (21-32) Anion Gap 14 (6-14) Blood Urea Nitrogen 33 mg/dL (7-20) Creatinine 1.2 mg/dL (0.6-1.0) Estimated GFR (Cockcroft-Gault) 43.3 BUN/Creatinine Ratio 28 (6-20) Glucose Level 108 mg/dL (70-99) Lactic Acid Level 3.6 mmol/L (0.4-2.0) Calcium Level 8.6 mg/dL (8.5-10.1) Total Bilirubin 1.8 mg/dL (0.2-1.0) Aspartate Amino Transf (AST/SGOT) 44 U/L (15-37) Alanine Aminotransferase (ALT/SGPT) 36 U/L (14-59) Alkaline Phosphatase 106 U/L (46-116) Troponin I High Sensitivity 21 ng/L (4-50) C-Reactive Protein, Quantitative 249.4 mg/L (0-3.3) VF-Hxz-J-Type Natriuretic Peptide 2212 pg/mL (0-449) Total Protein 6.7 g/dL (6.4-8.2) Albumin 1.9 g/dL (3.4-5.0) Albumin/Globulin Ratio 0.4 (1.0-1.7) Images Images PATIENT: MUNA MCCAIN ACCOUNT: [id number] : 1940 LOCATION: ER AGE: 81 SEX: F EXAM STATUS: REG ER ORD. PHYSICIAN: DAMIR LYNN APRN REASON: weight loss and weakness, fall PROCEDURE: CT CHEST ABDOMEN PELVIS WO Exam: CT of chest, abdomen and pelvis without contrast INDICATION: Weight loss, weakness TECHNIQUE: Sequential axial images through the chest, abdomen and pelvis obtained without IV contrast. Sagittal and coronal reformatted images were reconstructed from the axial data and reviewed. Exposure: One or more of the following in the visualized dose reduction techniques were utilized for this examination: 1. Automated exposure control 2. Adjustment of the MA and/or KV according to patient size 3. Use of iterative of reconstructive technique Comparisons: Chest x-ray same day FINDINGS: Visualized portions of the thyroid are unremarkable. No enlarged mediastinal lymph nodes are identified. Heart size is normal. No pericardial effusion. Mild coronary artery calcification. Ectatic dilatation of ascending aorta measuring up to 4.1 cm in diameter. Pulmonary artery is not enlarged. Airways are patent. No consolidation or pneumothorax. Mild centrilobular emphysematous change noted the upper lungs. No suspicious lung nodules are identified. No pleural effusion or thickening. Evaluation of solid organs limited secondary to noncontrast technique. Liver, spleen, pancreas, and adrenals are unremarkable. Gallbladder is absent. No perinephric inflammation or hydronephrosis. No renal or ureteral calculi are identified. Bladder is partially distended and appears thin-walled. Uterus not enlarged. No abnormal adnexal mass. Moderate amount of stool is noted in the colon. Appendix is nonidentified. No free intra-abdominal air. Small amount of free fluid in the pelvis. No obstruction. Abdominal aorta has normal course and caliber. No enlarged intra-abdominal lymph nodes are identified. No suspicious osseous lesions or acute fractures. IMPRESSION: 1. Small amount of free fluid in the pelvis. This is nonspecific, may relate to underlying infectious or inflammatory process. 2. Ectatic dilatation of ascending aorta measuring up to 4.1 cm in diameter. PATIENT: MUNA MCCAIN ACCOUNT: [id number] : 1940 LOCATION: ER AGE: 81 SEX: F EXAM STATUS: REG ER ORD. PHYSICIAN: DAMIR LYNN APRN REASON: swelling in legs PROCEDURE: PORTABLE CHEST 1V Single view chest dated 02/05/2022 7:35 PM: COMPARISON: 01/23/2022 Clinical Indication: Swelling in legs. Findings: Single upright portable exam of the chest was performed. Heart and mediastinal contours are stable. Lungs are hyperinflated but otherwise clear. No consolidat ion or pleural effusion. No pneumothorax. IMPRESSION: 1. No acute radiographic abnormality. 2. Findings suggestive of COPD. 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 Hypothyroidism needs to be excluded as well. Will obtain TSH, CK, Rh factor. Empirically dose with prednisone 15 mg qd, monitor for improvement. Will obtain echocardiogram to confirm diagnosis of diastolic CHF Will place consult to neurology given family history of muscular dystrophy and noted weakness on exam Borderline elevation in BNP, concerning for developing heart failure. Patient also has a white count. On review of patient's previous CT she had a tree-in-bud appearance on the left lung. Will treat with antibiotics to see if this is the cause of her leukocytosis. Possible systemic arthritis as the cause of her elevated inflammatory markers. Continue treatment with Rocephin 1 g daily. Urine cultures pending. Treat likely depression and poor appetite with Remeron 15 mg qhs IV normal saline Recommend repeat CT in 6 months for ascending aortic aneurysm Nutrition consult PT/OT Resume home medications FEN - Cardiac diet PPX - Heparin DNR/surrogate decision-maker is her (Gary Mccain) Dispo - inpatient for above Critical care time 46 minutes spent reviewing charts, reviewing labs, reviewing imaging, discussion with patient and family, and discussion with ER STORAGE BATTERY TESTER Justifications for Admission Other Justification JACK ASHRAF MD February 05, 2022 21:57
[2022-02-05 22:40] VITALS: BP 148/84
--- NOTE | 2022-02-05 23:50 | EKG ---
[facility] [address] [place] [address] Test Date: 2022-02-05 Test Time: 18:34:58 Pat Name: MUNA MCCAIN Department: Room: [facility] Gender: F Safety And Occupational Health Manager: : 1940 Requested By: DAMIR LYNN Order Number: [id number] Reading MD: Dominik Wilkinson MD Measurements Intervals [place] Rate: 91 P: 90 SC: 110 QRS: 36 QRSD: 82 T: 74 QT: 346 QTc: 427 Interpretive Statements SINUS RHYTHM Electronically Signed On 02-08-2022 8:57:58 CDT by Dominik Wilkinson MD
[2022-02-06] MEDS ORDERED: ACETAMINOPHEN 325 MG TABLET. PO PRN (01:00)
[2022-02-06] MEDS ORDERED: HYDROcodone/APAP 5/325MG 1 TAB TABLET PO PRN (01:00)
[2022-02-06] MEDS ORDERED: MAG HYDROX/ALUMINUM HYD/SIMETH 30 ML ORAL.SUSP PO PRN (01:00)
[2022-02-06] MEDS ORDERED: ZOLPIDEM 5 MG TABLET. PO PRN (01:00)
[2022-02-06] MEDS ORDERED: ONDANSETRON PF 4 MG/2 ML VIAL. IVP PRN (01:00)
[2022-02-06] MEDS ORDERED: CALCIUM CARBONATE 500 MG TAB.CHEW PO PRN (01:00)
[2022-02-06] MEDS ORDERED: MAGNESIUM HYDROXIDE 2,400 MG/30 ML ORAL.SUSP. PO PRN (01:00)
[2022-02-06 03:00] VITALS: BP 122/68
[2022-02-06 03:03] LABS: BASO % 0 % (0-3); EOS # 0.1 x10^3/uL (0.0-0.7); EOS % 1 % (0-3); HEMATOCRIT 31.5 % (36.0-47.0); HEMOGLOBIN 10.4 g/dL (12.0-15.5); LYMPH # 0.6 x10^3/uL (1.0-4.8); LYMPH % 4 % (24-48); MEAN CORPUSCULAR HEMOGLOBIN 28 pg (25-35); MEAN CORPUSCULAR HGB CONC 33 g/dL (31-37); MEAN CORPUSCULAR VOLUME 86 fL (79-100); MONO # 1.3 x10^3/uL (0.0-1.1); MONO % 10 % (0-9); NEUT # 11.5 x10^3/uL (1.8-7.7); NEUT % 85 % (31-73); PLATELET COUNT 233 x10^3/uL (140-400); RED BLOOD COUNT 3.68 x10^6/uL (3.50-5.40); RED CELL DISTRIBUTION WIDTH 15.2 % (11.5-14.5); WHITE BLOOD COUNT 13.5 x10^3/uL (4.0-11.0)
[2022-02-06 03:11] LABS: CALCIUM 7.3 mg/dL (8.5-10.1); CREATININE 0.9 mg/dL (0.6-1.0); GFR 60.4
[2022-02-06 04:38] LABS: POTASSIUM 2.8 mmol/L (3.5-5.1)
[2022-02-06] MEDS ORDERED: POTASSIUM CHLORIDE 20 MEQ TABLET.ER. PO ONE ×3 (05:30→09:30)
[2022-02-06 07:00] VITALS: BP 115/66
[2022-02-06] MEDS ORDERED: predniSONE 10 MG TABLET PO SCH (09:00)
[2022-02-06] MEDS: HEPARIN for SUB-Q USE 5,000 UNIT/ML VIAL. SQ SCH ×2 (09:16→21:24)
[2022-02-06 11:00] VITALS: BP 120/69
--- NOTE | 2022-02-06 11:46 | PDOC ---
[employer] PROGRESS NOTE Date of Service DOS: DATE: 02/06/22 TIME: 11:43 Chief Complaint Chief Complaint Assessment/Plan Possible Polymyalgia Rheumatica? 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 Will obtain TSH, CK, Rh factor. TSH CK is normal. RF pending Empirically dose with prednisone 15 mg qd, monitor for improvement. Will obtain echocardiogram to confirm diagnosis of diastolic CHF Will place consult to neurology given family history of muscular dystrophy and noted weakness on exam Borderline elevation in BNP, concerning for developing heart failure. Patient also has a white count. On review of patient's previous CT she had a tree -in-bud appearance on the left lung. Will treat with antibiotics to see if this is the cause of her leukocytosis. Possible systemic arthritis as the cause of her elevated inflammatory markers. CRP and ESR elevated Continue treatment with Rocephin 1 g daily. Urine cultures pending. Treat likely depression and poor appetite with Remeron 15 mg qhs IV normal saline Recommend repeat CT in 6 months for ascending aortic aneurysm Nutrition consult PT/OT Resume home medications FEN - Cardiac diet PPX - Heparin DNR/surrogate decision-maker is her (Gary Menjivar) Dispo - inpatient for above History of Present Illness History of Present Illness 02/06 Patient evaluated examined at bedside. She was resting easily awoken. Said she still feeling fatigued. No appetite still. Thyroid labs normal. CK normal. Elevated inflammatory markers. Handful of work-up still pending. Check vitamin D today. Sounds a lot like depression but continue working up for medical causes. We will follow work-up. Discussed with bedside RN. Vitals/I&O Vitals/I&O: Vital Signs Date Time Temp Pulse Resp B/P (MAP) Pulse Ox O2 Delivery O2 Flow Rate FiO2 02/06/22 11:00 98.0 64 18 120/69 (86) 96 Nasal Cannula 2.0 98.0 I & O 02/05/22 02/05/22 02/06/22 15:00 23:00 07:00 Intake Total 250 ml Balance 250 ml Physical Exam General: Alert, Oriented X3, Cooperative Heart: Regular rate, Normal S1, Normal S2 Lungs: Clear Abdomen: Normal bowel sounds, Soft, No tenderness Extremities: Other (bilateral lower extremity pitting edema) Skin: No significant lesion Labs Labs: Laboratory Tests Test 02/05/22 18:27 02/05/22 18:52 02/06/22 02:45 Urine Collection Type Unknown Urine Color (Auto) Yellow Urine Turbidity Hazy Urine pH (Auto) 5.5 (<5.0-8.0) Urine Specific [place] 1.021 (1.000-1.030) Urine Protein (Auto) 50 mg/dL (Negative) Urine Glucose (Auto)(UA) Negative mg/dL (Negative) Urine Ketones (Auto) 20 mg/dL (Negative) Urine Blood (Auto) Moderate (Negative) Urine Nitrite Negative (Negative) Urine Bilirubin (Auto) Negative (Negative) Urine Urobilinogen (Auto) 4 mg/dL (Normal) Urine Leukocyte Esterase (Auto) Large (Negative) Urine RBC 3-5 /HPF (0-2) Urine WBC 11-20 /HPF (0-4) Urine Squamous Epithelial Cells Many /LPF Urine Transitional Epithelial Cells Few /LPF Urine Renal Epithelial Cells Few /LPF Urine Bacteria Few /HPF (0-FEW) Urine Hyaline Casts Moderate /HPF Urine Granular Casts Few /HPF Urine Mucus Marked /LPF White Blood Count 18.4 x10^3/uL (4.0-11.0) 13.5 x10^3/uL (4.0-11.0) Red Blood Count 4.64 x10^6/uL (3.50-5.40) 3.68 x10^6/uL (3.50-5.40) Hemoglobin 13.2 g/dL (12.0-15.5) 10.4 g/dL (12.0-15.5) Hematocrit 39.7 % (36.0-47.0) 31.5 % (36.0-47.0) Mean Corpuscular Volume 86 fL (79-100) 86 fL (79-100) Mean Corpuscular Hemoglobin 29 pg (25-35) 28 pg (25-35) Mean Corpuscular Hemoglobin Concent 33 g/dL (31-37) 33 g/dL (31-37) Red Cell Distribution Width 15.3 % (11.5-14.5) 15.2 % (11.5-14.5) Platelet Count 320 x10^3/uL (140-400) 233 x10^3/uL (140-400) Neutrophils (%) (Auto) 87 % (31-73) 85 % (31-73) Lymphocytes (%) (Auto) 4 % (24-48) 4 % (24-48) Monocytes (%) (Auto) 8 % (0-9) 10 % (0-9) Eosinophils (%) (Auto) 0 % (0-3) 1 % (0-3) Basophils (%) (Auto) 0 % (0-3) 0 % (0-3) Neutrophils # (Auto) 16.0 x10^3/uL (1.8-7.7) 11.5 x10^3/uL (1.8-7.7) Lymphocytes # (Auto) 0.7 x10^3/uL (1.0-4.8) 0.6 x10^3/uL (1.0-4.8) Monocytes # (Auto) 1.6 x10^3/uL (0.0-1.1) 1.3 x10^3/uL (0.0-1.1) Eosinophils # (Auto) 0.1 x10^3/uL (0.0-0.7) 0.1 x10^3/uL (0.0-0.7) Basophils # (Auto) 0.1 x10^3/uL (0.0-0.2) 0.0 x10^3/uL (0.0-0.2) Segmented Neutrophils % 82 % (35-66) Band Neutrophils % 3 % (0-9) Lymphocytes % 7 % (24-48) Monocytes % 6 % (0-10) Myelocytes % 2 % (0-0) Platelet Estimate Adequate (ADEQUATE) Erythrocyte Sedimentation Rate 40 (0-25) Sodium Level 139 mmol/L (136-145) 139 mmol/L (136-145) Potassium Level 3.5 mmol/L (3.5-5.1) 2.8 mmol/L (3.5-5.1) Chloride Level 97 mmol/L (98-107) 103 mmol/L (98-107) Carbon Dioxide Level 28 mmol/L (21-32) 27 mmol/L (21-32) Anion Gap 14 (6-14) 9 (6-14) Blood Urea Nitrogen 33 mg/dL (7-20) 29 mg/dL (7-20) Creatinine 1.2 mg/dL (0.6-1.0) 0.9 mg/dL (0.6-1.0) Estimated GFR (Cockcroft-Gault) 43.3 60.4 BUN/Creatinine Ratio 28 (6-20) Glucose Level 108 mg/dL (70-99) 106 mg/dL (70-99) Lactic Acid Level 3.6 mmol/L (0.4-2.0) 0.9 mmol/L (0.4-2.0) Calcium Level 8.6 mg/dL (8.5-10.1) 7.3 mg/dL (8.5-10.1) Total Bilirubin 1.8 mg/dL (0.2-1.0) Aspartate Amino Transf (AST/SGOT) 44 U/L (15-37) Alanine Aminotransferase (ALT/SGPT) 36 U/L (14-59) Alkaline Phosphatase 106 U/L (46-116) Troponin I High Sensitivity 21 ng/L (4-50) C-Reactive Protein, Quantitative 249.4 mg/L (0-3.3) JD-Hfv-F-Type Natriuretic Peptide 2212 pg/mL (0-449) Total Protein 6.7 g/dL (6.4-8.2) Albumin 1.9 g/dL (3.4-5.0) Albumin/Globulin Ratio 0.4 (1.0-1.7) Creatine Kinase 82 U/L (26-192) Thyroid Stimulating Hormone (TSH) 2.554 uIU/mL (0.358-3.74) Assessment and Plan Assessmemt and Plan Problems Medical Problems: (1) Sepsis Status: Acute (2) Urinary tract infection Status: Acute (3) Weakness generalized Status: Acute (4) Weight loss Status: Acute Comment Review of Relevant I have reviewed the following items ben (where applicable) has been applied. Medications: Current Medications Medications (Trade) Dose Ordered Sig/Oren Route PRN Reason Start Time Stop Time Status Last Admin Dose Admin Sodium Chloride 1,000 ml @ 999 mls/hr 1X ONCE IV 02/05/22 18:45 02/05/22 19:45 DC 02/05/22 19:02 Ceftriaxone Sodium (Rocephin) 1 gm 1X ONCE IVP 02/05/22 20:00 02/05/22 20:01 DC 02/05/22 19:50 Sodium Chloride 1,000 ml @ 999 mls/hr 1X ONCE IV 02/05/22 19:30 02/05/22 20:30 DC 02/05/22 19:49 Prednisone (Prednisone) 15 mg DAILY PO 02/06/22 09:00 02/06/22 09:06 Heparin Sodium (Porcine) (Heparin Sodium) 5,000 unit Q12HR SQ 02/06/22 09:00 02/06/22 09:16 Potassium Chloride (Klor-Con) 40 meq 1X ONCE PO 02/06/22 05:30 02/06/22 05:31 DC 02/06/22 05:38 Potassium Chloride (Klor-Con) 40 meq 1X ONCE PO 02/06/22 09:30 02/06/22 09:31 DC 02/06/22 09:08 Justifications for Admission Other Justification KIERRA JACKSON MD February 06, 2022 11:46
[2022-02-06] MEDS: cefTRIAXone IV Push 1 GM VIAL. IVP SCH (12:52)
--- NOTE | 2022-02-06 14:11 | PDOC2 ---
NEUROLOGY CONSULT Date of Service DOS: DATE: 02/06/22 TIME: 14:05 Reason for Consult Reason for Consult: Weakness Referring Physician Referring Physician: Dr. Burk Source Source: Chart review, Patient History of Present Illness History of Present Illness The patient is a 81-year-old right-handed female who has been getting weak and experiencing weight loss for the last 3 to 4 months. This started when her dog . She has been depressed. gets her to drink some Ensure daily. She has been getting weaker mainly in the legs but still has not used a cane or a walker. A son with myotonic muscular dystrophy, the son's father was adopted and patient believes that the genes came from that side of the family as she has no family history otherwise of any muscular dystrophy. She does have COPD and recently started on home oxygen. There is no history of stroke, seizure, or head injury. She denies neck or back pain. She denies any type of myalgia. Past Medical History Pulmonary: COPD GI: Constipation Past Surgical History Past Surgical History: Cholecystectomy Family History Family History: Other (As above, son had myotonic dystrophy) Social History Social History , no tobacco or alcohol Current Medications Current Medications Current Medications Sodium Chloride 1,000 ml @ 999 mls/hr 1X ONCE IV Last administered on 02/05/22at 19:02; Start 02/05/22 at 18:45; Stop 02/05/22 at 19:45; Status DC Ceftriaxone Sodium (Rocephin) 1 gm 1X ONCE IVP Last administered on 02/05/22at 19:50; Start 02/05/22 at 20:00; Stop 02/05/22 at 20:01; Status DC Sodium Chloride 1,000 ml @ 999 mls/hr 1X ONCE IV Last administered on 02/05/22at 19:49; Start 02/05/22 at 19:30; Stop 02/05/22 at 20:30; Status DC Prednisone (Prednisone) 15 mg DAILY PO Last administered on 02/06/22at 09:06; Start 02/06/22 at 09:00; Stop 02/06/22 at 13:43; Status DC Mirtazapine (Remeron) 15 mg QHS PO ; Start 02/06/22 at 21:00 Ondansetron HCl (Zofran) 4 mg PRN Q6HRS PRN IVP NAUSEA/VOMITING 1ST CHOICE; Start 02/06/22 at 01:00 Al Hydroxide/Mg Hydroxide (Mylanta Plus Xs) 30 ml PRN Q3HRS PRN PO HEARTBURN / GAS; Start 02/06/22 at 01:00 Calcium Carbonate/ Glycine (Tums) 500 mg PRN Q3HRS PRN PO UPSET STOMACH; Start 02/06/22 at 01:00 Zolpidem Tartrate (Ambien) 5 mg PRN QHS PRN PO INSOMNIA, MAY REPEAT IN 1HR; Start 02/06/22 at 01:00 Acetaminophen/ Hydrocodone Bitart (Lortab 5/325) 1 tab PRN Q4HRS PRN PO MILD PAIN 1-3; Start 02/06/22 at 01:00 Acetaminophen (Tylenol) 650 mg PRN Q6HRS PRN PO Headaches, Temp > 101.5F; Start 02/06/22 at 01:00 Magnesium Hydroxide (Milk Of Magnesia) 2,400 mg PRN Q12HR PRN PO CONSTIPATION; Start 02/06/22 at 01:00 Heparin Sodium (Porcine) (Heparin Sodium) 5,000 unit Q12HR SQ Last administered on 02/06/22at 09:16; Start 02/06/22 at 09:00 Potassium Chloride (Klor-Con) 40 meq 1X ONCE PO Last administered on 02/06/22at 05:38; Start 02/06/22 at 05:30; Stop 02/06/22 at 05:31; Status DC Potassium Chloride (Klor-Con) 40 meq 1X ONCE PO Last administered on 02/06/22at 09:08; Start 02/06/22 at 09:30; Stop 02/06/22 at 09:31; Status DC Potassium Chloride (Klor-Con) 40 meq 1X ONCE PO ; Start 02/06/22 at 05:45; Stop 02/06/22 at 05:46; Status UNV Ceftriaxone Sodium (Rocephin) 1 gm Q24H IVP Last administered on 02/06/22at 12:52; Start 02/06/22 at 11:45 Active Scripts Active Furosemide 20 Mg Tablet 1 Tab PO DAILY 7 Days Amox Tr-K Clv 875-125 Mg Tab (Amoxicillin/Potassium Clav) 1 Each Tablet 1 Tab PO BID 5 Days Allergies Allergies: Coded Allergies: iodine (Verified Allergy, Intermediate, 01/23/22) ROS Review of System Negative for fever, chills, weight loss, shortness of breath, chest pain, indigestion, hematochezia, melena, and dysuria. Full 14-point review of systems is negative. Physical Exam Physical Examination General: Well-developed, well-nourished white female in no acute distress HEENT: Normocephalic andatraumatic. Temporal arteriespulsatile and nontender. Neck: Supple without bruit, no meningismus Musculoskeletal: Stability:see neurologic. Gait exam:see neurologic. Tone:see neurologic.Strength:see neurologic. Neurological: Mental Status:intact, orientation, memory, attention span/concentration, language, fund of knowledge normal. Cranial Nerves:Pupils equal and reactive to light, extraocular movements areintact, visual white are full to confrontation. Facial sensation is normal. There is no facial asymmetry. Vestibulo-ocular reflex is intact. Palate elevates and tongue protrudes in midline. All other cranial related problems are negative except as mentioned before.Reflexes:2+ and symmetric with flexor plantar responses. Motor:4/5 strength with normal tone and bulk. No evidence of myotonic dystrophy. Coordination:Finger-nose finger and [id number] testing are normal. Rapid alternating movements and fine finger movements are intact. Gait:A little unsteady, able to ambulate for me. Sensory:Normal pinprick, vibration, light touch, proprioception. Vitals VITALS Vital Signs Date Time Temp Pulse Resp B/P (MAP) Pulse Ox O2 Delivery O2 Flow Rate FiO2 02/06/22 11:00 98.0 64 18 120/69 (86) 96 Nasal Cannula 2.0 98.0 Labs Labs Laboratory Tests Test 02/05/22 18:27 02/05/22 18:52 02/06/22 02:45 Urine Collection Type Unknown Urine Color (Auto) Yellow Urine Turbidity Hazy Urine pH (Auto) 5.5 (<5.0-8.0) Urine Specific [place] 1.021 (1.000-1.030) Urine Protein (Auto) 50 mg/dL (Negative) Urine Glucose (Auto)(UA) Negative mg/dL (Negative) Urine Ketones (Auto) 20 mg/dL (Negative) Urine Blood (Auto) Moderate (Negative) Urine Nitrite Negative (Negative) Urine Bilirubin (Auto) Negative (Negative) Urine Urobilinogen (Auto) 4 mg/dL (Normal) Urine Leukocyte Esterase (Auto) Large (Negative) Urine RBC 3-5 /HPF (0-2) Urine WBC 11-20 /HPF (0-4) Urine Squamous Epithelial Cells Many /LPF Urine Transitional Epithelial Cells Few /LPF Urine Renal Epithelial Cells Few /LPF Urine Bacteria Few /HPF (0-FEW) Urine Hyaline Casts Moderate /HPF Urine Granular Casts Few /HPF Urine Mucus Marked /LPF White Blood Count 18.4 x10^3/uL (4.0-11.0) 13.5 x10^3/uL (4.0-11.0) Red Blood Count 4.64 x10^6/uL (3.50-5.40) 3.68 x10^6/uL (3.50-5.40) Hemoglobin 13.2 g/dL (12.0-15.5) 10.4 g/dL (12.0-15.5) Hematocrit 39.7 % (36.0-47.0) 31.5 % (36.0-47.0) Mean Corpuscular Volume 86 fL (79-100) 86 fL (79-100) Mean Corpuscular Hemoglobin 29 pg (25-35) 28 pg (25-35) Mean Corpuscular Hemoglobin Concent 33 g/dL (31-37) 33 g/dL (31-37) Red Cell Distribution Width 15.3 % (11.5-14.5) 15.2 % (11.5-14.5) Platelet Count 320 x10^3/uL (140-400) 233 x10^3/uL (140-400) Neutrophils (%) (Auto) 87 % (31-73) 85 % (31-73) Lymphocytes (%) (Auto) 4 % (24-48) 4 % (24-48) Monocytes (%) (Auto) 8 % (0-9) 10 % (0-9) Eosinophils (%) (Auto) 0 % (0-3) 1 % (0-3) Basophils (%) (Auto) 0 % (0-3) 0 % (0-3) Neutrophils # (Auto) 16.0 x10^3/uL (1.8-7.7) 11.5 x10^3/uL (1.8-7.7) Lymphocytes # (Auto) 0.7 x10^3/uL (1.0-4.8) 0.6 x10^3/uL (1.0-4.8) Monocytes # (Auto) 1.6 x10^3/uL (0.0-1.1) 1.3 x10^3/uL (0.0-1.1) Eosinophils # (Auto) 0.1 x10^3/uL (0.0-0.7) 0.1 x10^3/uL (0.0-0.7) Basophils # (Auto) 0.1 x10^3/uL (0.0-0.2) 0.0 x10^3/uL (0.0-0.2) Segmented Neutrophils % 82 % (35-66) Band Neutrophils % 3 % (0-9) Lymphocytes % 7 % (24-48) Monocytes % 6 % (0-10) Myelocytes % 2 % (0-0) Platelet Estimate Adequate (ADEQUATE) Erythrocyte Sedimentation Rate 40 (0-25) Sodium Level 139 mmol/L (136-145) 139 mmol/L (136-145) Potassium Level 3.5 mmol/L (3.5-5.1) 2.8 mmol/L (3.5-5.1) Chloride Level 97 mmol/L (98-107) 103 mmol/L (98-107) Carbon Dioxide Level 28 mmol/L (21-32) 27 mmol/L (21-32) Anion Gap 14 (6-14) 9 (6-14) Blood Urea Nitrogen 33 mg/dL (7-20) 29 mg/dL (7-20) Creatinine 1.2 mg/dL (0.6-1.0) 0.9 mg/dL (0.6-1.0) Estimated GFR (Cockcroft-Gault) 43.3 60.4 BUN/Creatinine Ratio 28 (6-20) Glucose Level 108 mg/dL (70-99) 106 mg/dL (70-99) Lactic Acid Level 3.6 mmol/L (0.4-2.0) 0.9 mmol/L (0.4-2.0) Calcium Level 8.6 mg/dL (8.5-10.1) 7.3 mg/dL (8.5-10.1) Total Bilirubin 1.8 mg/dL (0.2-1.0) Aspartate Amino Transf (AST/SGOT) 44 U/L (15-37) Alanine Aminotransferase (ALT/SGPT) 36 U/L (14-59) Alkaline Phosphatase 106 U/L (46-116) Troponin I High Sensitivity 21 ng/L (4-50) C-Reactive Protein, Quantitative 249.4 mg/L (0-3.3) PC-Vpw-[id number]-Type Natriuretic Peptide 2212 pg/mL (0-449) Total Protein 6.7 g/dL (6.4-8.2) Albumin 1.9 g/dL (3.4-5.0) Albumin/Globulin Ratio 0.4 (1.0-1.7) Creatine Kinase 82 U/L (26-192) Thyroid Stimulating Hormone (TSH) 2.554 uIU/mL (0.358-3.74) Laboratory Tests Test 02/05/22 18:27 02/05/22 18:52 02/06/22 02:45 Urine Collection Type Unknown Urine Color (Auto) Yellow Urine Turbidity Hazy Urine pH (Auto) 5.5 (<5.0-8.0) Urine Specific [place] 1.021 (1.000-1.030) Urine Protein (Auto) 50 mg/dL (Negative) Urine Glucose (Auto)(UA) Negative mg/dL (Negative) Urine Ketones (Auto) 20 mg/dL (Negative) Urine Blood (Auto) Moderate (Negative) Urine Nitrite Negative (Negative) Urine Bilirubin (Auto) Negative (Negative) Urine Urobilinogen (Auto) 4 mg/dL (Normal) Urine Leukocyte Esterase (Auto) Large (Negative) Urine RBC 3-5 /HPF (0-2) Urine WBC 11-20 /HPF (0-4) Urine Squamous Epithelial Cells Many /LPF Urine Transitional Epithelial Cells Few /LPF Urine Renal Epithelial Cells Few /LPF Urine Bacteria Few /HPF (0-FEW) Urine Hyaline Casts Moderate /HPF Urine Granular Casts Few /HPF Urine Mucus Marked /LPF White Blood Count 18.4 x10^3/uL (4.0-11.0) 13.5 x10^3/uL (4.0-11.0) Red Blood Count 4.64 x10^6/uL (3.50-5.40) 3.68 x10^6/uL (3.50-5.40) Hemoglobin 13.2 g/dL (12.0-15.5) 10.4 g/dL (12.0-15.5) Hematocrit 39.7 % (36.0-47.0) 31.5 % (36.0-47.0) Mean Corpuscular Volume 86 fL (79-100) 86 fL (79-100) Mean Corpuscular Hemoglobin 29 pg (25-35) 28 pg (25-35) Mean Corpuscular Hemoglobin Concent 33 g/dL (31-37) 33 g/dL (31-37) Red Cell Distribution Width 15.3 % (11.5-14.5) 15.2 % (11.5-14.5) Platelet Count 320 x10^3/uL (140-400) 233 x10^3/uL (140-400) Neutrophils (%) (Auto) 87 % (31-73) 85 % (31-73) Lymphocytes (%) (Auto) 4 % (24-48) 4 % (24-48) Monocytes (%) (Auto) 8 % (0-9) 10 % (0-9) Eosinophils (%) (Auto) 0 % (0-3) 1 % (0-3) Basophils (%) (Auto) 0 % (0-3) 0 % (0-3) Neutrophils # (Auto) 16.0 x10^3/uL (1.8-7.7) 11.5 x10^3/uL (1.8-7.7) Lymphocytes # (Auto) 0.7 x10^3/uL (1.0-4.8) 0.6 x10^3/uL (1.0-4.8) Monocytes # (Auto) 1.6 x10^3/uL (0.0-1.1) 1.3 x10^3/uL (0.0-1.1) Eosinophils # (Auto) 0.1 x10^3/uL (0.0-0.7) 0.1 x10^3/uL (0.0-0.7) Basophils # (Auto) 0.1 x10^3/uL (0.0-0.2) 0.0 x10^3/uL (0.0-0.2) Segmented Neutrophils % 82 % (35-66) Band Neutrophils % 3 % (0-9) Lymphocytes % 7 % (24-48) Monocytes % 6 % (0-10) Myelocytes % 2 % (0-0) Platelet Estimate Adequate (ADEQUATE) Erythrocyte Sedimentation Rate 40 (0-25) Sodium Level 139 mmol/L (136-145) 139 mmol/L (136-145) Potassium Level 3.5 mmol/L (3.5-5.1) 2.8 mmol/L (3.5-5.1) Chloride Level 97 mmol/L (98-107) 103 mmol/L (98-107) Carbon Dioxide Level 28 mmol/L (21-32) 27 mmol/L (21-32) Anion Gap 14 (6-14) 9 (6-14) Blood Urea Nitrogen 33 mg/dL (7-20) 29 mg/dL (7-20) Creatinine 1.2 mg/dL (0.6-1.0) 0.9 mg/dL (0.6-1.0) Estimated GFR (Cockcroft-Gault) 43.3 60.4 BUN/Creatinine Ratio 28 (6-20) Glucose Level 108 mg/dL (70-99) 106 mg/dL (70-99) Lactic Acid Level 3.6 mmol/L (0.4-2.0) 0.9 mmol/L (0.4-2.0) Calcium Level 8.6 mg/dL (8.5-10.1) 7.3 mg/dL (8.5-10.1) Total Bilirubin 1.8 mg/dL (0.2-1.0) Aspartate Amino Transf (AST/SGOT) 44 U/L (15-37) Alanine Aminotransferase (ALT/SGPT) 36 U/L (14-59) Alkaline Phosphatase 106 U/L (46-116) Troponin I High Sensitivity 21 ng/L (4-50) C-Reactive Protein, Quantitative 249.4 mg/L (0-3.3) QV-Xkk-T-Type Natriuretic Peptide 2212 pg/mL (0-449) Total Protein 6.7 g/dL (6.4-8.2) Albumin 1.9 g/dL (3.4-5.0) Albumin/Globulin Ratio 0.4 (1.0-1.7) Creatine Kinase 82 U/L (26-192) Thyroid Stimulating Hormone (TSH) 2.554 uIU/mL (0.358-3.74) Assessment/Plan Assessment/Plan Impression: She does have some mild diffuse weakness, without evidence of myopathy, radiculopathy, neuropathy, plexopathy, or central nervous system disease. I suspect this is related to her malnutrition over the last several months Acute admission issues include pyuria, lactic acidosis, elevated sedimentation rate and CRP levels, note normal CPK levels, hypokalemia, leukocytosis. CT chest abdomen and pelvis negative for neoplasm, does have some free fluid in the pelvis as well as aortic aneurysm. Recommendations: As discussed with Dr. Almendarez, I do not think she has polymyalgia rheumatica, polymyositis, or any other inflammatory myopathy. Therefore I believe the risks outweigh the benefits of steroids. Additional laboratory studies for metabolic issues causing weakness Rehabilitation modalities Ensure good nutrition Treatment of medical issues. Thank you for letting me help with the patient's care. AFRICA OTT MD February 06, 2022 14:11
[2022-02-06 15:02] VITALS: BP 125/50
[2022-02-06 19:00] VITALS: BP 148/83
[2022-02-06] MEDS ORDERED: MIRTAZAPINE 15 MG TABLET PO SCH (21:00)
[2022-02-06] MEDS: LACTOBACILLUS RHAMNOSUS GG 1 CAPSULE. PO SCH (21:16)
[2022-02-06 23:01] VITALS: BP 130/71
[2022-02-07 04:28] VITALS: BP 148/91
[2022-02-07 07:00] VITALS: BP 156/76
[2022-02-07 08:04] LABS: BASO % 0 % (0-3); EOS # 0.1 x10^3/uL (0.0-0.7); EOS % 1 % (0-3); HEMOGLOBIN 10.6 g/dL (12.0-15.5); LYMPH # 0.6 x10^3/uL (1.0-4.8); LYMPH % 6 % (24-48); MEAN CORPUSCULAR HEMOGLOBIN 28 pg (25-35); MEAN CORPUSCULAR HGB CONC 33 g/dL (31-37); MEAN CORPUSCULAR VOLUME 86 fL (79-100); MONO # 1.2 x10^3/uL (0.0-1.1); MONO % 11 % (0-9); NEUT # 8.9 x10^3/uL (1.8-7.7); NEUT % 82 % (31-73); PLATELET COUNT 261 x10^3/uL (140-400); RED BLOOD COUNT 3.73 x10^6/uL (3.50-5.40); RED CELL DISTRIBUTION WIDTH 15.5 % (11.5-14.5); WHITE BLOOD COUNT 10.9 x10^3/uL (4.0-11.0)
[2022-02-07 08:21] LABS: CALCIUM 7.8 mg/dL (8.5-10.1); GFR 53.5; POTASSIUM 3.7 mmol/L (3.5-5.1)
[2022-02-07] MEDS: LACTOBACILLUS RHAMNOSUS GG 1 CAPSULE. PO SCH ×2 (08:27→20:19)
[2022-02-07] MEDS: HEPARIN for SUB-Q USE 5,000 UNIT/ML VIAL. SQ SCH ×2 (08:32→20:20)
[2022-02-07 11:00] VITALS: BP 142/79
[2022-02-07] MEDS: cefTRIAXone IV Push 1 GM VIAL. IVP SCH (12:24)
[2022-02-07 15:00] VITALS: BP 141/73
[2022-02-07 19:00] VITALS: BP 142/84
[2022-02-07] MEDS: MIRTAZAPINE 7.5 MG TABLET. PO SCH (20:18)
--- NOTE | 2022-02-07 20:56 | PDOC ---
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 Will obtain TSH, CK, Rh factor. TSH CK is normal. RF pending Will obtain echocardiogram to confirm diagnosis of diastolic CHF Will place consult to neurology given family history of muscular dystrophy and noted weakness on exam Borderline elevation in BNP, concerning for developing heart failure. Patient also has a white count. On review of patient's previous CT she had a tree-in-bud appearance on the left lung. Will treat with antibiotics to see if this is the cause of her leukocytosis. Possible systemic arthritis as the cause of her elevated inflammatory markers. CRP and ESR elevated Continue treatment with Rocephin 1 g daily. Urine cultures pending. Treat likely depression and poor appetite with Remeron 15 mg qhs --> decrease dose to 7.5 mg IV normal saline Recommend repeat CT in 6 months for ascending aortic aneurysm Nutrition consult PT/OT Resume home medications FEN - Cardiac diet PPX - Heparin DNR/surrogate decision-maker is her (Gary Menjivar) Dispo - inpatient for above History of Present Illness History of Present Illness 02/07 Patient evaluated examined at bedside. Much more alert than yesterday. at bedside as well had very many questions. Initially asked me if I had reviewed the patient's chart at any point after he berated me for about 90 seconds I informed him I had reviewed the chart and discussed with admitting hospitalist and consulting physicians. Quite a bit of discrepancies between patient's story and story. CRP is elevated but other medical work-up pr jeanine unremarkable other than malnutrition. Started discussing depression diagnosis with them patient was very resistant to this but ultimately she has good and bad days. With symptoms of fatigue decreased appetite decreased energy insomnia anxiety very much fits a picture for major depressive disorder. Received 15 mg Remeron overnight. Very lethargic this morning. Decrease dose to 7.5 mg. Asked both patient and that if recommended for rehab they would be agreeable. This resulted in quite the argument between patient and her .. said much-needed, patient said she is doing just fine. Will await therapy evaluation. Had pretty long one-on-one with outside of the room. Again explained to him current plan. Really thus far nothing getting a true organic medical diagnosis. Explained reasonings for depression concern. He is agreeable with continued treatment. Discussed with bedside RN. 02/06 Patient evaluated examined at bedside. She was resting easily awoken. Said she still feeling fatigued. No appetite still. Thyroid labs normal. CK normal. Elevated inflammatory markers. Handful of work-up still pending. Check vitamin D today. Sounds a lot like depression but continue working up for medical causes. We will follow work-up. Discussed with bedside RN. Vitals/I&O Vitals/I&O: Vital Signs Date Time Temp Pulse Resp B/P (MAP) Pulse Ox O2 Delivery O2 Flow Rate FiO2 02/07/22 19:00 98.5 89 18 142/84 (103) 94 Nasal Cannula 98.5 02/07/22 15:00 2.0 I & O 02/06/22 02/06/22 02/07/22 14:59 22:59 06:59 Intake Total 200 ml 100 ml Output Total 300 ml Balance 200 ml 100 ml -300 ml Physical Exam General: Alert, Oriented X3, Cooperative Heart: Regular rate, Normal S1, Normal S2 Lungs: Clear Abdomen: Normal bowel sounds, Soft, No tenderness Extremities: Other (bilateral lower extremity pitting edema) Skin: No significant lesion Labs Labs: Laboratory Tests Test 02/07/22 06:15 White Blood Count 10.9 x10^3/uL (4.0-11.0) Red Blood Count 3.73 x10^6/uL (3.50-5.40) Hemoglobin 10.6 g/dL (12.0-15.5) Hematocrit 32.0 % (36.0-47.0) Mean Corpuscular Volume 86 fL (79-100) Mean Corpuscular Hemoglobin 28 pg (25-35) Mean Corpuscular Hemoglobin Concent 33 g/dL (31-37) Red Cell Distribution Width 15.5 % (11.5-14.5) Platelet Count 261 x10^3/uL (140-400) Neutrophils (%) (Auto) 82 % (31-73) Lymphocytes (%) (Auto) 6 % (24-48) Monocytes (%) (Auto) 11 % (0-9) Eosinophils (%) (Auto) 1 % (0-3) Basophils (%) (Auto) 0 % (0-3) Neutrophils # (Auto) 8.9 x10^3/uL (1.8-7.7) Lymphocytes # (Auto) 0.6 x10^3/uL (1.0-4.8) Monocytes # (Auto) 1.2 x10^3/uL (0.0-1.1) Eosinophils # (Auto) 0.1 x10^3/uL (0.0-0.7) Basophils # (Auto) 0.0 x10^3/uL (0.0-0.2) Sodium Level 140 mmol/L (136-145) Potassium Level 3.7 mmol/L (3.5-5.1) Chloride Level 105 mmol/L (98-107) Carbon Dioxide Level 29 mmol/L (21-32) Anion Gap 6 (6-14) Blood Urea Nitrogen 33 mg/dL (7-20) Creatinine 1.0 mg/dL (0.6-1.0) Estimated GFR (Cockcroft-Gault) 53.5 Glucose Level 83 mg/dL (70-99) Calcium Level 7.8 mg/dL (8.5-10.1) Assessment and Plan Assessmemt and Plan Problems Medical Problems: (1) Sepsis Status: Acute (2) Urinary tract infection Status: Acute (3) Weakness generalized Status: Acute (4) Weight loss Status: Acute Comment Review of Relevant I have reviewed the following items ben (where applicable) has been applied. Medications: Current Medications Medications (Trade) Dose Ordered Sig/Oren Route PRN Reason Start Time Stop Time Status Last Admin Dose Admin Mirtazapine (Remeron) 15 mg QHS PO 02/06/22 21:00 02/07/22 12:41 DC 02/06/22 21:16 Lactobacillus Rhamnosus (Culturelle) 1 cap BID PO 02/06/22 21:00 02/07/22 20:19 Mirtazapine (Remeron) 7.5 mg QHS PO 02/07/22 21:00 02/07/22 20:18 Justifications for Admission Other Justification KIERRA JACKSON MD February 07, 2022 20:56
[2022-02-07 23:01] VITALS: BP 130/77
[2022-02-08 07:00] VITALS: BP 148/79
--- NOTE | 2022-02-08 08:42 | PDOC ---
PROGRESS NOTES Date of Service DATE: 02/08/22 TIME: 08:39 Assessment Problems Medical Problems: (1) Sepsis Status: Acute (2) Urinary tract infection Status: Acute (3) Weakness generalized Status: Acute (4) Weight loss Status: Acute She does have some mild diffuse weakness, without evidence of myopathy, radiculopathy, neuropathy, plexopathy, or central nervous system disease. I suspect this is related to her malnutrition over the last several months Acute admission issues include pyuria, lactic acidosis, elevated sedimentation rate and CRP levels, note normal CPK levels, hypokalemia, leukocytosis. CT chest abdomen and pelvis negative for neoplasm, does have some free fluid in the pelvis as well as aortic aneurysm. Plan Holding on steroids. B12 level pending Rehabilitation modalities Ensure good nutrition Treatment of medical issues. Needs SNU Subjective Feeling stronger Objective Vital Signs Date Time Temp Pulse Resp B/P (MAP) Pulse Ox O2 Delivery O2 Flow Rate FiO2 02/08/22 07:00 98.6 82 18 148/79 (102) 95 Nasal Cannula 98.6 02/07/22 20:23 2.0 Intake and Output 02/08/22 07:00 Intake Total 60 ml Output Total 0 ml Balance 60 ml Intake Oral 60 ml Output Urine Total 0 ml # Voids 3 PHYSICAL EXAM Alert. Oriented to time, place and person. PERRL. EOMI. CN: no focal findings. Muscle tone: normal. Muscle strength: 4/5, no myotonia DTR: 2+ Plantar reflex: Flexor Gait: not examined in bed. Sensory exam: no abnormal findings. No cerebellar signs elicited. Review of Relevant I have reviewed the following items ben (where applicable) has been applied. Labs Laboratory Tests Test 02/07/22 06:15 White Blood Count 10.9 x10^3/uL (4.0-11.0) Red Blood Count 3.73 x10^6/uL (3.50-5.40) Hemoglobin 10.6 g/dL (12.0-15.5) Hematocrit 32.0 % (36.0-47.0) Mean Corpuscular Volume 86 fL (79-100) Mean Corpuscular Hemoglobin 28 pg (25-35) Mean Corpuscular Hemoglobin Concent 33 g/dL (31-37) Red Cell Distribution Width 15.5 % (11.5-14.5) Platelet Count 261 x10^3/uL (140-400) Neutrophils (%) (Auto) 82 % (31-73) Lymphocytes (%) (Auto) 6 % (24-48) Monocytes (%) (Auto) 11 % (0-9) Eosinophils (%) (Auto) 1 % (0-3) Basophils (%) (Auto) 0 % (0-3) Neutrophils # (Auto) 8.9 x10^3/uL (1.8-7.7) Lymphocytes # (Auto) 0.6 x10^3/uL (1.0-4.8) Monocytes # (Auto) 1.2 x10^3/uL (0.0-1.1) Eosinophils # (Auto) 0.1 x10^3/uL (0.0-0.7) Basophils # (Auto) 0.0 x10^3/uL (0.0-0.2) Sodium Level 140 mmol/L (136-145) Potassium Level 3.7 mmol/L (3.5-5.1) Chloride Level 105 mmol/L (98-107) Carbon Dioxide Level 29 mmol/L (21-32) Anion Gap 6 (6-14) Blood Urea Nitrogen 33 mg/dL (7-20) Creatinine 1.0 mg/dL (0.6-1.0) Estimated GFR (Cockcroft-Gault) 53.5 Glucose Level 83 mg/dL (70-99) Calcium Level 7.8 mg/dL (8.5-10.1) Microbiology 02/06/22 Blood Culture - Preliminary, Resulted NO GROWTH AFTER 2 DAYS 02/05/22 Urine Culture - Final, Complete Medications Current Medications Sodium Chloride 1,000 ml @ 999 mls/hr 1X ONCE IV Last administered on 02/05/22at 19:02; Start 02/05/22 at 18:45; Stop 02/05/22 at 19:45; Status DC Ceftriaxone Sodium (Rocephin) 1 gm 1X ONCE IVP Last administered on 02/05/22at 19:50; Start 02/05/22 at 20:00; Stop 02/05/22 at 20:01; Status DC Sodium Chloride 1,000 ml @ 999 mls/hr 1X ONCE IV Last administered on 02/05/22at 19:49; Start 02/05/22 at 19:30; Stop 02/05/22 at 20:30; Status DC Prednisone (Prednisone) 15 mg DAILY PO Last administered on 02/06/22at 09:06; Start 02/06/22 at 09:00; Stop 02/06/22 at 13:43; Status DC Mirtazapine (Remeron) 15 mg QHS PO Last administered on 02/06/22at 21:16; Start 02/06/22 at 21:00; Stop 02/07/22 at 12:41; Status DC Ondansetron HCl (Zofran) 4 mg PRN Q6HRS PRN IVP NAUSEA/VOMITING 1ST CHOICE; Start 02/06/22 at 01:00 Al Hydroxide/Mg Hydroxide (Mylanta Plus Xs) 30 ml PRN Q3HRS PRN PO HEARTBURN / GAS; Start 02/06/22 at 01:00 Calcium Carbonate/ Glycine (Tums) 500 mg PRN Q3HRS PRN PO UPSET STOMACH; Start 02/06/22 at 01:00 Zolpidem Tartrate (Ambien) 5 mg PRN QHS PRN PO INSOMNIA, MAY REPEAT IN 1HR; Start 02/06/22 at 01:00 Acetaminophen/ Hydrocodone Bitart (Lortab 5/325) 1 tab PRN Q4HRS PRN PO MILD PAIN 1-3; Start 02/06/22 at 01:00 Acetaminophen (Tylenol) 650 mg PRN Q6HRS PRN PO Headaches, Temp > 101.5F; Start 02/06/22 at 01:00 Magnesium Hydroxide (Milk Of Magnesia) 2,400 mg PRN Q12HR PRN PO CONSTIPATION; Start 02/06/22 at 01:00 Heparin Sodium (Porcine) (Heparin Sodium) 5,000 unit Q12HR SQ Last administered on 02/07/22at 20:20; Start 02/06/22 at 09:00 Potassium Chloride (Klor-Con) 40 meq 1X ONCE PO Last administered on 02/06/22at 05:38; Start 02/06/22 at 05:30; Stop 02/06/22 at 05:31; Status DC Potassium Chloride (Klor-Con) 40 meq 1X ONCE PO Last administered on 02/06/22at 09:08; Start 02/06/22 at 09:30; Stop 02/06/22 at 09:31; Status DC Potassium Chloride (Klor-Con) 40 meq 1X ONCE PO ; Start 02/06/22 at 05:45; Stop 02/06/22 at 05:46; Status UNV Ceftriaxone Sodium (Rocephin) 1 gm Q24H IVP Last administered on 02/07/22at 12:24; Start 02/06/22 at 11:45 Lactobacillus Rhamnosus (Culturelle) 1 cap BID PO Last administered on 02/07/22at 20:19; Start 02/06/22 at 21:00 Mirtazapine (Remeron) 7.5 mg QHS PO Last administered on 02/07/22at 20:18; Start 02/07/22 at 21:00 Active Scripts Active Furosemide 20 Mg Tablet 1 Tab PO DAILY 7 Days Amox Tr-K Clv 875-125 Mg Tab (Amoxicillin/Potassium Clav) 1 Each Tablet 1 Tab PO BID 5 Days Vitals/I & O Vital Sign - Last 24 Hours 02/07/22 02/07/22 02/07/22 02/07/22 11:00 15:00 19:00 20:23 Temp 98.7 99.0 98.5 98.7 99.0 98.5 Pulse 87 89 89 Resp 20 20 18 B/P (MAP) 142/79 (100) 141/73 (95) 142/84 (103) Pulse Ox 95 94 94 O2 Delivery Nasal Cannula Nasal Cannula Nasal Cannula Nasal Cannula O2 Flow Rate 2.0 2.0 2.0 02/07/22 02/08/22 23:01 07:00 Temp 98.2 98.6 98.2 98.6 Pulse 86 82 Resp 18 18 B/P (MAP) 130/77 (94) 148/79 (102) Pulse Ox 96 95 O2 Delivery Nasal Cannula Nasal Cannula Intake and Output 02/07/22 02/07/22 02/08/22 15:00 23:00 07:00 Intake Total 60 ml Output Total 0 ml Balance 60 ml 0 ml Justicifation of Admission Dx: Justifications for Admission: Justification of Admission Dx: N/A AFRICA OTT MD February 08, 2022 08:42
[2022-02-08] MEDS: LACTOBACILLUS RHAMNOSUS GG 1 CAPSULE. PO SCH ×2 (08:46→20:46)
[2022-02-08] MEDS: HEPARIN for SUB-Q USE 5,000 UNIT/ML VIAL. SQ SCH ×2 (08:55→20:56)
[2022-02-08 11:00] VITALS: BP 125/83
[2022-02-08] MEDS: cefTRIAXone IV Push 1 GM VIAL. IVP SCH (11:54)
[2022-02-08] MEDS: POLYETHYLENE GLYCOL 3350 17 GM PACKET. PO SCH ×2 (11:54→17:37)
--- NOTE | 2022-02-08 12:53 | NUR ---
SS following for discharge planning. SS reviewed pt chart and discussed with pt RN. Pt is from home with spouse and is currently requiring oxygen at two liters nasal canula. Pt on IV Rocephin. Neurology following. PT/OT ordered. PT recommended senior care unit. SS met with pt and spouse in room to discuss discharge planning. Pt and spouse agreeable to senior care unit and requested #1 [facility], ; fax [phone], and #[address] [facility], ; fax [phone]. Referrals sent as requested. COVID19 PCR requested for placement. [facility] requesting OT note. SS will continue to follow for discharge planning.
--- NOTE | 2022-02-08 13:10 | PDOC ---
[employer] PROGRESS NOTE Date of Service DOS: DATE: 02/08/22 TIME: 13:05 Chief Complaint Chief Complaint Assessment/Plan Failure to thrive Depression Severe protein malnutrition DEBBY due to vasomotor nephropathyresolved Likely diastolic CHF Lactic acidosisresolved Ascending aortic aneurysm Contaminated bacteriuria will complete course of antibiotics Plan: Continue Remeron at 7.5 mg Pending echocardiogram to confirm diagnosis of diastolic CHF Appreciate neurology recommendationslikely not due to MDD or inflammatory myopathy. All related to metabolic causes for her weakness and also combination of depression. IV normal saline Recommend repeat CT in 6 months for ascending aortic aneurysm Nutrition consult PT/OT Resume home medications FEN - Cardiac diet PPX - Heparin DNR/surrogate decision-maker is her (Gary Menjivar) Dispo -pending rehab placement History of Present Illness History of Present Illness 02/08/2022 No acute events overnight. Patient seen examined bedside. Patient's mood is stable. More alert today. at bedside and continues to agree with rehab placement. Pending PCR for placement. No bowel movement yet we will start M iraLAX every 6 hours until patient has a bowel movement. Still need to collect stool for occult blood. Rule out blood loss anemia. Patient's chart, labs, images were reviewed and discussed with RN 5/8 Patient evaluated examined at bedside. Much more alert than yesterday. at bedside as well had very many questions. Initially asked me if I had reviewed the patient's chart at any point after he berated me for about 90 seconds I informed him I had reviewed the chart and discussed with admitting h ospitalist and consulting physicians. Quite a bit of discrepancies between patient's story and story. CRP is elevated but other medical work-up pretty unremarkable other than malnutrition. Started discussing depression diagnosis with them patient was very resistant to this but ultimately she has good and bad days. With symptoms of fatigue decreased appetite decreased energy insomnia anxiety very much fits a picture for major depressive disorder. Received 15 mg Remeron overnight. Very lethargic this morning. Decrease dose to 7.5 mg. Asked both patient and that if recommended for rehab they would be agreeable. This resulted in quite the argument between patient and her .. said much-needed, patient said she is doing just fine. Will await therapy evaluation. Had pretty long one-on-one with outside of the room. Again explained to him current plan. Really thus far nothing getting a true organic medical diagnosis. Explained reasonings for depression concern. He is agreeable with continued treatment. Discussed with bedside RN. 02/06 Patient evaluated examined at bedside. She was resting easily awoken. Said she still feeling fatigued. No appetite still. Thyroid labs normal. CK normal. Elevated inflammatory markers. Handful of work-up still pending. Check vitamin D today. Sounds a lot like depression but continue working up for medical causes. We will follow work-up. Discussed with bedside RN. Vitals/I&O Vitals/I&O: Vital Signs Date Time Temp Pulse Resp B/P (MAP) Pulse Ox O2 Delivery O2 Flow Rate FiO2 02/08/22 11:00 98.2 101 18 125/83 (97) 94 Nasal Cannula 2.0 98.2 I & O 02/07/22 02/07/22 02/08/22 15:00 23:00 07:00 Intake Total 60 ml Output Total 0 ml Balance 60 ml 0 ml Physical Exam General: Alert, Oriented X3, Cooperative Heart: Regular rate, Normal S1, Normal S2 Lungs: Clear Abdomen: Normal bowel sounds, Soft, No tenderness Extremities: Other (bilateral lower extremity pitting edema) Skin: No significant lesion Assessment and Plan Assessmemt and Plan Problems Medical Problems: (1) Sepsis Status: Acute (2) Urinary tract infection Status: Acute (3) Weakness generalized Status: Acute (4) Weight loss Status: Acute Comment Review of Relevant I have reviewed the following items ben (where applicable) has been applied. Medications: Current Medications Medications (Trade) Dose Ordered Sig/Oren Route PRN Reason Start Time Stop Time Status Last Admin Dose Admin Mirtazapine (Remeron) 7.5 mg QHS PO 02/07/22 21:00 02/07/22 20:18 Polyethylene Glycol (miraLAX PACKET) 17 gm Q6HRS PO 02/08/22 12:00 02/08/22 11:54 Justifications for Admission Other Justification MARIANNE INGRAM MD February 08, 2022 13:10
[2022-02-08 15:00] VITALS: BP 132/74
[2022-02-08 19:00] VITALS: BP 141/76
[2022-02-08] MEDS: MIRTAZAPINE 7.5 MG TABLET. PO SCH (20:46)
[2022-02-08 23:00] VITALS: BP 128/76
[2022-02-09] MEDS: POLYETHYLENE GLYCOL 3350 17 GM PACKET. PO SCH ×3 (06:02→12:00)
[2022-02-09 07:00] VITALS: BP 115/74
[2022-02-09] MEDS: LACTOBACILLUS RHAMNOSUS GG 1 CAPSULE. PO SCH ×2 (08:51→22:11)
[2022-02-09] MEDS: HEPARIN for SUB-Q USE 5,000 UNIT/ML VIAL. SQ SCH ×2 (08:53→22:22)
[2022-02-09 11:00] VITALS: BP 130/81
[2022-02-09] MEDS: cefTRIAXone IV Push 1 GM VIAL. IVP SCH (11:52)
[2022-02-09] MEDS ORDERED: CEFD300C PO (12:19)
[2022-02-09] MEDS ORDERED: MIRT7.5T8 PO (12:19)
--- NOTE | 2022-02-09 12:37 | SNU/HH DC ---
DISCHARGE ORDERS DISCHARGE INFORMATION: DISCHARGE DATE: February 09, 2022 FINAL DIAGNOSIS Problems Medical Problems: (1) Sepsis Status: Acute (2) Urinary tract infection Status: Acute (3) Weakness generalized Status: Acute (4) Weight loss Status: Acute CONDITION ON DISCHARGE: Stable CODE STATUS: Code Status: DNR/DNI SENIOR LIVING: SNF STAY <30 DAYS: Yes POST DISCHARGE ORDERS: ACTIVITY ORDERS: Activity as tolerated WEIGHT BEARING STATUS: As tolerated DIET AFTER DISCHARGE: Regular CHECKS AFTER DISCHARGE: CHECKS AFTER DISCHARGE: Check blood press - daily, Weigh Yourself Daily FOLLOW-UP: PHYSICIAN FOLLOW-UP: PCP within 2 weeks of discharge LAB ORDERS FOR FOLLOW-UP: CBC, CMP in 1 week TREATMENT/EQUIPMENT ORDERS: Physical Therapy For: Evalulation/Treatment Occupational Therapy For: Evaluation/Treatment DISCHARGE MEDICATIONS: Home Meds Active Scripts Bisacodyl (DULCOLAX) 10 Mg Supp.rect, 1 SUPP RC DAILY PRN for CONSTIPATION for 10 Days, #10 SUPP 0 Refills Prov:MARIANNE INGRAM MD 02/09/22 Polyethylene Glycol 3350 (POLYETHYLENE GLYCOL 3350) 17 Gm Powd.pack, 17 GM PO BID PRN for CONSTIPATION for 30 Days, #60 PKT Prov:MARIANNE INGRAM MD 02/09/22 Cefdinir (CEFDINIR) 300 Mg Capsule, 1 CAP PO BID for uti for 3 Days, #6 CAP Prov:MARIANNE INGRAM MD 02/09/22 Mirtazapine (MIRTAZAPINE) 7.5 Mg Tablet, 7.5 MG PO QHS for depression for 30 Days, #30 TAB Prov:MARIANNE INGRAM MD 02/09/22 Discontinued Scripts Furosemide (FUROSEMIDE) 20 Mg Tablet, 1 TAB PO DAILY for diuretic for 7 Days, #7 TAB 1 Refill Prov:NABILA FAIRCHILD MD 01/23/22 Amoxicillin/Potassium Clav (AMOX TR-K CLV 875-125 MG TAB) 1 Each Tablet, 1 TAB PO BID for antibiotic for 5 Days, #10 TAB Prov:NABILA FAIRCHILD MD 01/23/22 MARIANNE INGRAM MD February 09, 2022 12:37
--- NOTE | 2022-02-09 13:09 | NUR ---
SS following up with discharge planning. SS reviewed pt chart and discussed with pt RN. Pt is currently requiring oxygen at two liters nasal canula. COVID19 negative. PT/OT recommended group home unit. Pt accepted at [facility], ; fax [phone]. Discharge orders received and sent to [facility]. Pt will discharge today and go to [facility] between 1500 and 1530 via [employer] [facility] transportation. Pt, pt's RN, and pt's spouse notified. Addendum: 02/09/22 at 1616 by JEWEL BOWLES SS Pt's RN notified SS that pt would not be discharging due to not having bowel movement. SS canceled transportation and notified [facility]. Pt's RN then stated that pt was able to discharge. No transports available when SS called [facility], [employer], and [email or web address]. [facility] transport scheduled pt for 1000 tomorrow, 02/10/2022. Pt and pt's spouse notified. Pt's RN notified.
[2022-02-09] MEDS ORDERED: BISA10SU55 RC (14:33)
[2022-02-09] MEDS ORDERED: POLY17PO52 PO (14:33)
--- NOTE | 2022-02-09 14:55 | PDOC ---
[employer] PROGRESS NOTE Date of Service DOS: DATE: 02/09/22 TIME: 14:53 Chief Complaint Chief Complaint Assessment/Plan Failure to thrive Depression Severe protein malnutrition DEBBY due to vasomotor nephropathyresolved Likely diastolic CHF Lactic acidosisresolved Ascending aortic aneurysm Contaminated bacteriuria will complete course of antibiotics Plan: Continue Remeron at 7.5 mg Pending echocardiogram to confirm diagnosis of diastolic CHF Appreciate neurology recommendationslikely not due to MDD or inflammatory myopathy. All related to metabolic causes for her weakness and also combination of depression. IV normal saline Recommend repeat CT in 6 months for ascending aortic aneurysm Nutrition consult PT/OT Resume home medications FEN - Cardiac diet PPX - Heparin DNR/surrogate decision-maker is her (Gary Menjivar) Dispo -pending rehab placement History of Present Illness History of Present Illness 02/09/2022 No acute events overnight. Patient seen examined bedside. Patient more alert and tolerating somewhat of a diet. Seen at bedside drinking water. Patient has not had a bowel movement since time of admission admission. Patient is passing gas and feels like she is about to have a bowel movement. concerned about this. Initially held to discharge because of this reason and it was explained to them in depth that she needs rehab which is ultimately treatment for her delayed bowel movement and she has not been eating much. After a 30- minute discussion, was comfortable for her discharge and patient wanted to go to rehab and try to have a bowel movement there. By that time, transportation had been canceled and rescheduled for the next day. Therefore, in the meantime I will attempt magnesium citrate and Dulcolax suppository as needed and see if we can have her to have passing of some stool before she goes. Patient's chart, labs, images were reviewed and discussed with RN 02/08/2022 No acute events overnight. Patient seen examined bedside. Patient's mood is stable. More alert today. at bedside and continues to agree with rehab placement. Pending PCR for placement. No bowel movement yet we will start MiraLAX every 6 hours until patient has a bowel movement. Still need to collect stool for occult blood. Rule out blood loss anemia. Patient's chart, labs, images were reviewed and discussed with RN 02/07 Patient evaluated examined at bedside. Much more alert than yesterday. at bedside as well had very many questions. Initially asked me if I had reviewed the patient's chart at any point after he berated me for about 90 seconds I informed him I had reviewed the chart and discussed with admitting hospitalist and consulting physicians. Quite a bit of discrepancies between patient's story and story. CRP is elevated but other medical work-up pretty unremarkable other than malnutrition. Started discussing depression diagnosis with them patient was very resistant to this but ultimately she has good and bad days. With symptoms of fatigue decreased appetite decreased energy insomnia anxiety very much fits a picture for major depressive disorder. Received 15 mg Remeron overnight. Very lethargic this morning. Decrease dose to 7.5 mg. Asked both patient and that if recommended for rehab they would be agreeable. This resulted in quite the argument between patient and her .. said much-needed, patient said she is doing just fine. Will await therapy evaluation. Had pretty long one-on-one with outside of the room. Again explained to him current plan. Really thus far nothing getting a true organic medical diagnosis. Explained reasonings for depression concern. He is agreeable with continued treatment. Discussed with bedside RN. 02/06 Patient evaluated examined at bedside. She was resting easily awoken. Said she still feeling fatigued. No appetite still. Thyroid labs normal. CK normal. Elevated inflammatory markers. Handful of work-up still pending. Check vitamin D today. Sounds a lot like depression but continue working up for medical causes. We will follow work-up. Discussed with bedside RN. Vitals/I&O Vitals/I&O: Vital Signs Date Time Temp Pulse Resp B/P (MAP) Pulse Ox O2 Delivery O2 Flow Rate FiO2 02/09/22 11:00 98.4 96 16 130/81 (97) 94 Nasal Cannula 2.0 98.4 I & O 02/08/22 02/08/22 02/09/22 15:00 23:00 07:00 Intake Total 200 ml 350 ml Output Total 150 ml Balance -150 ml 200 ml 350 ml Physical Exam General: Alert, Oriented X3, Cooperative Heart: Regular rate, Normal S1, Normal S2 Lungs: Clear Abdomen: Normal bowel sounds, Soft, No tenderness Extremities: Other (bilateral lower extremity pitting edema) Skin: No significant lesion Assessment and Plan Assessmemt and Plan Problems Medical Problems: (1) Sepsis Status: Acute (2) Urinary tract infection Status: Acute (3) Weakness generalized Status: Acute (4) Weight loss Status: Acute Comment Review of Relevant I have reviewed the following items ben (where applicable) has been applied. Justifications for Admission Other Justification MARINANE INGRAM MD February 09, 2022 14:55
[2022-02-09 15:00] VITALS: BP 175/76
[2022-02-09] MEDS ORDERED: BISACODYL 10 MG SUPP.RECT. PR PRN (15:00)
[2022-02-09] MEDS ORDERED: MAGNESIUM CITRATE 296 ML SOLUTION. PO PRN (15:00)
[2022-02-09 19:00] VITALS: BP 141/87
[2022-02-09 21:28] LABS: FECAL OB PT NEGATIVE (NEG)
[2022-02-09] MEDS: MIRTAZAPINE 7.5 MG TABLET. PO SCH (22:11)
[2022-02-09 23:00] VITALS: BP 120/70
[2022-02-10 03:00] VITALS: BP 128/77
[2022-02-10 07:00] VITALS: BP 127/81
[2022-02-10] MEDS: LACTOBACILLUS RHAMNOSUS GG 1 CAPSULE. PO SCH (09:55)
[2022-02-10] MEDS: HEPARIN for SUB-Q USE 5,000 UNIT/ML VIAL. SQ SCH (09:56)
--- NOTE | 2022-02-10 10:40 | PDOC ---
PROGRESS NOTES Date of Service DATE: 02/10/22 TIME: 10:38 Assessment Problems Medical Problems: (1) Sepsis Status: Acute (2) Urinary tract infection Status: Acute (3) Weakness generalized Status: Acute (4) Weight loss Status: Acute She does have some mild diffuse weakness, without evidence of myopathy, radiculopathy, neuropathy, plexopathy, or central nervous system disease. I suspect this is related to her malnutrition over the last several months. Sister has myotonic dystrophy. Patient is gaining strength Acute admission issues include pyuria, lactic acidosis, elevated sedimentation rate and CRP levels, note normal CPK levels, hypokalemia, leukocytosis. CT chest abdomen and pelvis negative for neoplasm, does have some free fluid in the pelvis as well as aortic aneurysm. Plan Holding on steroids. Rehabilitation modalities Ensure good nutrition Treatment of medical issues. Needs SNU Follow-up with me as needed Subjective Feeling better Objective Vital Signs Date Time Temp Pulse Resp B/P (MAP) Pulse Ox O2 Delivery O2 Flow Rate FiO2 02/10/22 08:23 Nasal Cannula 2.0 02/10/22 07:00 98.2 92 18 127/81 (96) 97 98.2 Intake and Output 02/10/22 07:00 Intake Total 600 ml Balance 600 ml Intake Oral 600 ml # Voids 4 # Bowel Movements 2 PHYSICAL EXAM Alert. Oriented to time, place and person. PERRL. EOMI. CN: no focal findings. Muscle tone: normal. Muscle strength: 4/5, no myotonia DTR: 2+ Plantar reflex: Flexor Gait: not examined in bed. Sensory exam: no abnormal findings. No cerebellar signs elicited. Review of Relevant I have reviewed the following items ben (where applicable) has been applied. Labs Laboratory Tests Test 02/08/22 13:15 02/09/22 17:03 Coronavirus (COVID-19)(PCR) Not detected (NOT DETECTD) Stool Occult Blood Negative (NEG) Laboratory Tests Test 02/09/22 17:03 Stool Occult Blood Negative (NEG) Microbiology 02/06/22 Blood Culture - Preliminary, Resulted NO GROWTH AFTER 4 DAYS 02/05/22 Urine Culture - Final, Complete Medications Current Medications Sodium Chloride 1,000 ml @ 999 mls/hr 1X ONCE IV Last administered on 02/05/22at 19:02; Start 02/05/22 at 18:45; Stop 02/05/22 at 19:45; Status DC Ceftriaxone Sodium (Rocephin) 1 gm 1X ONCE IVP Last administered on 02/05/22at 19:50; Start 02/05/22 at 20:00; Stop 02/05/22 at 20:01; Status DC Sodium Chloride 1,000 ml @ 999 mls/hr 1X ONCE IV Last administered on 02/05/22at 19:49; Start 02/05/22 at 19:30; Stop 02/05/22 at 20:30; Status DC Prednisone (Prednisone) 15 mg DAILY PO Last administered on 02/06/22at 09:06; Start 02/06/22 at 09:00; Stop 02/06/22 at 13:43; Status DC Mirtazapine (Remeron) 15 mg QHS PO Last administered on 02/06/22at 21:16; Start 02/06/22 at 21:00; Stop 02/07/22 at 12:41; Status DC Ondansetron HCl (Zofran) 4 mg PRN Q6HRS PRN IVP NAUSEA/VOMITING 1ST CHOICE; Start 02/06/22 at 01:00 Al Hydroxide/Mg Hydroxide (Mylanta Plus Xs) 30 ml PRN Q3HRS PRN PO HEARTBURN / GAS; Start 02/06/22 at 01:00 Calcium Carbonate/ Glycine (Tums) 500 mg PRN Q3HRS PRN PO UPSET STOMACH; Start 02/06/22 at 01:00 Zolpidem Tartrate (Ambien) 5 mg PRN QHS PRN PO INSOMNIA, MAY REPEAT IN 1HR; Start 02/06/22 at 01:00 Acetaminophen/ Hydrocodone Bitart (Lortab 5/325) 1 tab PRN Q4HRS PRN PO MILD PAIN 1-3; Start 02/06/22 at 01:00 Acetaminophen (Tylenol) 650 mg PRN Q6HRS PRN PO Headaches, Temp > 101.5F; Start 02/06/22 at 01:00 Magnesium Hydroxide (Milk Of Magnesia) 2,400 mg PRN Q12HR PRN PO CONSTIPATION Last administered on 02/08/22at 09:09; Start 02/06/22 at 01:00 Heparin Sodium (Porcine) (Heparin Sodium) 5,000 unit Q12HR SQ Last administered on 02/10/22at 09:56; Start 02/06/22 at 09:00 Potassium Chloride (Klor-Con) 40 meq 1X ONCE PO Last administered on 02/06/22at 05:38; Start 02/06/22 at 05:30; Stop 02/06/22 at 05:31; Status DC Potassium Chloride (Klor-Con) 40 meq 1X ONCE PO Last administered on 02/06/22at 09:08; Start 02/06/22 at 09:30; Stop 02/06/22 at 09:31; Status DC Potassium Chloride (Klor-Con) 40 meq 1X ONCE PO ; Start 02/06/22 at 05:45; Stop 02/06/22 at 05:46; Status UNV Ceftriaxone Sodium (Rocephin) 1 gm Q24H IVP Last administered on 02/09/22at 11:52; Start 02/06/22 at 11:45 Lactobacillus Rhamnosus (Culturelle) 1 cap BID PO Last administered on 02/10/22at 09:55; Start 02/06/22 at 21:00 Mirtazapine (Remeron) 7.5 mg QHS PO Last administered on 02/09/22at 22:11; Start 02/07/22 at 21:00 Polyethylene Glycol (miraLAX PACKET) 17 gm Q6HRS PO Last administered on 02/09/22at 12:00; Start 02/08/22 at 12:00; Stop 02/09/22 at 17:16; Status DC Bisacodyl (Dulcolax Supp) 10 mg PRN DAILY PRN HI CONSTIPATION Last administered on 02/09/22at 15:00; Start 02/09/22 at 15:00 Magnesium Citrate (Citroma) 296 ml DAILY PRN PO CONSTIPATION; Start 02/09/22 at 15:00 Active Scripts Active Dulcolax (Bisacodyl) 10 Mg Supp.rect 1 Supp RC DAILY PRN 10 Days Polyethylene Glycol 3350 17 Gm Powd.pack 17 Gm PO BID PRN 30 Days Cefdinir 300 Mg Capsule 1 Cap PO BID 3 Days Mirtazapine 7.5 Mg Tablet 7.5 Mg PO QHS 30 Days Vitals/I & O Vital Sign - Last 24 Hours 02/09/22 02/09/22 02/09/22 02/09/22 11:00 15:00 19:00 20:00 Temp 98.4 98.8 99.6 98.4 98.8 99.6 Pulse 96 86 129 Resp 16 16 20 B/P (MAP) 130/81 (97) 175/76 (109) 141/87 (105) Pulse Ox 94 93 95 O2 Delivery Nasal Cannula Nasal Cannula Nasal Cannula Nasal Cannula O2 Flow Rate 2.0 2.0 2.0 2.0 02/09/22 02/10/22 02/10/22 02/10/22 23:00 03:00 07:00 08:23 Temp 99.1 98.5 98.2 99.1 98.5 98.2 Pulse 79 85 92 Resp 20 20 18 B/P (MAP) 120/70 (87) 128/77 (94) 127/81 (96) Pulse Ox 97 97 97 O2 Delivery Nasal Cannula Nasal Cannula Nasal Cannula Nasal Cannula O2 Flow Rate 2.0 2.0 2.0 2.0 Intake and Output 02/09/22 02/09/22 02/10/22 15:00 23:00 07:00 Intake Total 200 ml 400 ml Balance 200 ml 400 ml Justicifation of Admission Dx: Justifications for Admission: Justification of Admission Dx: N/A AFRICA OTT MD February 10, 2022 10:40
--- NOTE | 2022-02-10 11:08 | NUR ---
Pt left unit at approx 1040 by wheelchair via transport, accompanied by . Pt's VSS. Discharge paperwork sent with pt at time of discharge. Report given to NUNO Carlos of [facility].
== END 2022-02-10 11:15 | DRG 871 ==
LOC: ER 17:39 → 5 NORTH 20:50
PROVIDERS: ADMIT Family Medicine; ATTEND Family Medicine
DX: A41.9 Sepsis, unspecified organism (principal); N17.0 Acute kidney failure with tubular necrosis; E43 Unspecified severe protein-calorie malnutrition; I50.30 Unspecified diastolic (congestive) heart failure; N30.01 Acute cystitis with hematuria; R62.7 Adult failure to thrive; E87.6 Hypokalemia; F32.9 Major depressive disorder, single episode, unspecified; I71.2 Thoracic aortic aneurysm, without rupture; J44.9 Chronic obstructive pulmonary disease, unspecified; Z63.4 Disappearance and death of family member; K59.00 Constipation, unspecified; Z68.20 Body mass index [BMI] 20.0-20.9, adult; Z88.8 Allergy status to other drugs, medicaments and biological substances; Z20.822 Contact with and (suspected) exposure to COVID-19; Z90.49 Acquired absence of other specified parts of digestive tract; Z66 Do not resuscitate
CPT/HCPCS: 36415; 71045; 71250; 74176; 80048; 80053; 81001; 82274; 82306; 82550; 82607; 83605; 83880; 84443; 84484; 85007; 85025; 85651; 86140; 86431; 87040; 87086; 93005; 93308; 96361; 96374; J0696; J1644; J7030; J7512; U0003; 97530-GP; 97535-GO; 99285-25; G0378

== ENCOUNTER 2022-02-25 19:32 | Emergency (ER) | payer MEDICARE, BC ==
[~2022-02-25 19:32] MED LIST changes: +AMIODARONE 150 MG/3 ML VIAL ONE; +BISA10SU55 RC; +CEFD300C PO; +EPINEPHrine SYRINGE 1 MG/10 ML SYRINGE. ONE; +MIRT7.5T8 PO; +POLY17PO52 PO
--- NOTE | 2022-02-25 21:23 | PHYS DOC ---
Past Medical History Past Medical History: COPD Past Surgical History: Cholecystectomy Smoking Status: Never Smoker Alcohol Use: None General Adult EDM: Chief Complaint: CPR/FULL ARREST HPI: HPI: Patient is a 81 year old female who presents to the emergency department today in PEA arrest. History is limited. Per EMS patient was having a bowel movement when she slumped over. EMS was called. Patient was found to be in PEA. CPR initiated by EMS she was given multiple rounds of epi. Just prior to arrival patient in V. tach. Patient apparently had a large melanotic stool at home prior to arrest. No other information available at this time. Review of Systems: Review of Systems: Unable to obtain secondary to cardiac arrest Heart Score: C/O Chest Pain: N/A Family History: Family History: Noncontributory Allergies: Allergies: Allergies Coded Allergies Type Severity Reaction Last Updated Verified iodine Allergy Intermediate 01/23/22 Yes Physical Exam: PE: Constitutional: Well developed, well nourished in cardiac arrest HENT: Normocephalic, atraumatic, bilateral external ears normal, oropharynx moist, no oral exudates, nose normal. I gel in place. Eyes: Pupils 5 mm, fixed and dilated Neck: Normal range of motion, no tenderness, supple, no stridor. [] Cardiovascular: Absent heart sounds Lungs & Thorax: Bilateral breath sounds with bagging Abdomen: Bowel sounds normal, soft, no tenderness, no masses, no pulsatile masses. [] Skin: Pale Back: No step-off Extremities: No obvious deformity, no cyanosis, no clubbing, ROM intact, no edema. [] Neurologic: Unable to follow commands Psychologic: Unable to assess secondary to cardiac arrest EKG: EKG: [] Radiology/Procedures: Radiology/Procedures: [] Impression: Cardiac arrest Melena Course & Med Decision Making: Course & Med Decision Making Patient arrived in cardiac arrest. She was in V. tach just prior to arrival. She was taken to room 3 placed on a stretcher. Patient given a milligram of epi and 300 amiodarone. On pulse check no pulse present. I gel was replaced by myself with a 7.5 ET tube pleat. Please see my procedure note for further details. Patient received subsequent rounds of epi as she remained in PEA. No evidence of cardiac activity on cardiac ultrasound. Code was terminated at 1937. I discussed patient's course with her and son. I have also discussed with her PCP who will sign the certificate. Cayla Disclaimer: Cayla Disclaimer: This electronic medical record was generated, in whole or in part, using a voice recognition dictation system. Departure Departure Impression: Primary Impression: Emergency department triage assessment of Disposition: 20 Condition: LUCIEN LAWRENCE MD February 25, 2022 21:23
== END 2022-02-25 20:55 ==
LOC: ER 19:32
DX: I46.9 Cardiac arrest, cause unspecified (principal); J44.9 Chronic obstructive pulmonary disease, unspecified; Z88.8 Allergy status to other drugs, medicaments and biological substances
CPT/HCPCS: 31500; 99285; J0171; J0282